=== PATIENT | female | born 1930 | race Caucasian/White ===

== ENCOUNTER 2018-03-24 12:58 | Inpatient (IN) ==
--- NOTE | 2018-03-24 13:09 | Emergency Department Note ---
Disposition Clinical Impression: CHF (congestive heart failure), Hypertensive urgency Disposition: Admitted As Inpatient Condition: Fair General Adult HPI - General Stated complaint: dizziness Time Seen by Provider: 03/24/18 13:00 Source: patient Limitations: no limitations - History of Present Illness Pain Scale: 4 - Related Data Home Medications Medication Instructions Recorded Confirmed Furosemide [Lasix] 20 mg PO DAILY PRN 03/24/18 03/24/18 Losartan Potassium [Cozaar] 100 mg PO DAILY 03/24/18 03/24/18 Metoprolol Succinate [Kapspargo 100 mg PO DAILY 03/24/18 03/24/18 Sprinkle] RX: Latanoprost [Xalatan] 1 drop BOTH EYES HS 03/24/18 03/24/18 RX: Levothyroxine Sodium 50 mcg PO DAILY 03/24/18 03/24/18 Rivaroxaban [Xarelto] 15 mg PO DAILY 03/24/18 03/24/18 Allergies Allergy/AdvReac Type Severity Reaction Status Date / Time amlodipine [From [facility]] Allergy Cough Verified 03/24/18 13:28 diltiazem Allergy Hives Verified 03/24/18 13:28 lisinopril Allergy Cough Verified 03/24/18 13:28 Past Medical History - Past Medical History Medical history: Reports: other Psychiatric history: Reports: no psych history - Social History Smoking Status: Never smoker Smokeless Tobacco Status: No Alcohol use: Reports: none Drug use: Reports: none Physical Exam - General Limitations: no limitations General appearance: alert, in no apparent distress Course Vital Signs Temperature 97.7 F 03/24/18 13:04 Pulse Rate 81 03/24/18 13:04 Respiratory Rate 20 03/24/18 13:04 Blood Pressure 206/183 03/24/18 13:04 O2 Sat by Pulse Oximetry 95 03/24/18 13:04 Temperature 98.0 F 03/24/18 17:08 Pulse Rate 80 03/24/18 17:08 Respiratory Rate 16 03/24/18 17:08 Blood Pressure 192/100 03/24/18 18:37 O2 Sat by Pulse Oximetry 94 03/24/18 17:08 Oxygen Delivery Oxygen Delivery Room Air Medical Decision Making - Lab Data Result diagrams: 03/24/18 13:07 03/24/18 13:07 Lab Results 03/24/18 03/24/18 03/24/18 Range/Units 13:07 13:07 13:07 WBC 6.8 (4.3-11.1) K/mcL RBC 4.81 (3.82-4.97) M/mcL Hgb 15.2 (11.5-15.4) g/dL Hct 46.4 H (35.3-44.9) % MCV 96.5 (83.0-100.0) fL MCH 31.6 (28.0-33.3) pg MCHC 32.8 (31.6-35.5) g/dL RDW 14.4 (11.5-14.5) % Plt Count 173 (140-400) K/mcL MPV 10.2 (9.4-12.4) fL Immature Gran % 0.1 (0-4) % Seg Neutrophils % 57.8 % Lymphocytes % 29.9 % Monocytes % 8.7 % Eosinophils % 3.1 % Basophils % 0.4 % Neutrophils # 3.9 (1.6-8.9) K/mcL Lymphocytes # 2.0 (0.6-4.6) K/mcL Monocytes # 0.6 (0.0-1.3) K/mcL Eosinophils # 0.2 (0.0-0.6) K/mcL Basophils # 0.0 (0.0-0.2) K/mcL Sodium 137 (136-145) mEq/L Potassium 4.1 (3.5-5.1) mEq/L Chloride 105 (98-107) mEq/L Carbon Dioxide 24 (23-29) mEq/L BUN 16 (8-23) mg/dL Creatinine 1.15 (0.60-1.20) mg/dL Est GFR ( Amer) 54 L (> 60) Est GFR (Non-Af Amer) 45 L (> 60) BUN/Creatinine Ratio 14 (6-26) Glucose 111 H (70-105) mg/dL Calculated Osmolality 286 (280-300) Calcium 9.7 (8.6-10.3) mg/dL Magnesium 2.3 (1.6-2.6) mg/dL Total Bilirubin 1.3 H (0.3-1.0) mg/dL AST 23 (13-39) Units/L ALT 17 (7-52) Units/L Alkaline Phosphatase 91 (34-104) Units/L Troponin I < 0.03 (< 0.04) ng/mL B-Natriuretic Peptide 402 H (Less than 100) pg/mL Serum Total Protein 7.4 (6.4-8.9) g/dL Albumin 4.4 (3.5-5.7) g/dL Globulin 3.0 (2.4-3.5) g/dL Albumin/Globulin Ratio 1.5 (1.1-2.2) Urine Color (Yellow) Urine Clarity (Clear) Urine pH (5.0-8.0) pH Units Ur Specific [place] (1.010-1.025) Urine Protein (Neg-Trace) mg/dL Urine Glucose (UA) (Normal) mg/dL Urine Ketones (Negative) mg/dL Urine Blood (Negative) Urine Nitrite (Negative) Urine Bilirubin (Negative) Urine Urobilinogen (Normal) mg/dL Ur Leukocyte Esterase (Negative) Urine Microscopic RBC (0-3) per hpf Urine Microscopic WBC (0-3) per hpf Ur Squamous Epith Cells (None-Few) per lpf Urine Bacteria (None-Few) per hpf Hyaline Casts (None-Few) per lpf 03/24/18 Range/Units 13:27 WBC (4.3-11.1) K/mcL RBC (3.82-4.97) M/mcL Hgb (11.5-15.4) g/dL Hct (35.3-44.9) % MCV (83.0-100.0) fL MCH (28.0-33.3) pg MCHC (31.6-35.5) g/dL RDW (11.5-14.5) % Plt Count (140-400) K/mcL MPV (9.4-12.4) fL Immature Gran % (0-4) % Seg Neutrophils % % Lymphocytes % % Monocytes % % Eosinophils % % Basophils % % Neutrophils # (1.6-8.9) K/mcL Lymphocytes # (0.6-4.6) K/mcL Monocytes # (0.0-1.3) K/mcL Eosinophils # (0.0-0.6) K/mcL Basophils # (0.0-0.2) K/mcL Sodium (136-145) mEq/L Potassium (3.5-5.1) mEq/L Chloride (98-107) mEq/L Carbon Dioxide (23-29) mEq/L BUN (8-23) mg/dL Creatinine (0.60-1.20) mg/dL Est GFR ( Amer) (> 60) Est GFR (Non-Af Amer) (> 60) BUN/Creatinine Ratio (6-26) Glucose (70-105) mg/dL Calculated Osmolality (280-300) Calcium (8.6-10.3) mg/dL Magnesium (1.6-2.6) mg/dL Total Bilirubin (0.3-1.0) mg/dL AST (13-39) Units/L ALT (7-52) Units/L Alkaline Phosphatase (34-104) Units/L Troponin I (< 0.04) ng/mL B-Natriuretic Peptide (Less than 100) pg/mL Serum Total Protein (6.4-8.9) g/dL Albumin (3.5-5.7) g/dL Globulin (2.4-3.5) g/dL Albumin/Globulin Ratio (1.1-2.2) Urine Color Yellow (Yellow) Urine Clarity Clear (Clear) Urine pH 7.0 (5.0-8.0) pH Units Ur Specific [place] < 1.005 L (1.010-1.025) Urine Protein 30 H (Neg-Trace) mg/dL Urine Glucose (UA) Normal (Normal) mg/dL Urine Ketones Negative (Negative) mg/dL Urine Blood Small H (Negative) Urine Nitrite Negative (Negative) Urine Bilirubin Negative (Negative) Urine Urobilinogen Normal (Normal) mg/dL Ur Leukocyte Esterase Trace H (Negative) Urine Microscopic RBC 3-5 H (0-3) per hpf Urine Microscopic WBC 0-3 (0-3) per hpf Ur Squamous Epith Cells Moderate H (None-Few) per lpf Urine Bacteria None Seen (None-Few) per hpf Hyaline Casts None Seen (None-Few) per lpf Attestation Statement - Attestation Attestation: I examined this patient and my medical decision-making was reviewed with the Resident Physician. I agree with the documented findings, disposition and treatment plan as described except to the extent set forth below. [id number] time provided The patient describes ongoing dyspnea over the past several months. Today she "just does not feel like myself." She has a history of poorly controlled blood pressures. She takes normal anticoagulants for atrial fibrillation which is chronic. Family concerned that earlier today her speech was slurred which has resolved. The patient is alert and lucid without focal neurologic findings at the time of arrival
[2018-03-24] MEDS ORDERED: amLODIPine 5 MG TABLET PO STA (13:19)
--- NOTE | 2018-03-24 13:30 | Emergency Department Note ---
Disposition Clinical Impression: Hypertensive urgency CHF (congestive heart failure) Qualifiers: Heart failure type: unspecified Heart failure chronicity: unspecified Qualified Code(s): I50.9 - Heart failure, unspecified Disposition: Admitted As Inpatient Condition: Fair Forms: ED Satisfaction Letter Time of Disposition: 15:13 Weakness HPI - General Chief complaint: ED Weakness Stated complaint: dizziness Time Seen by Provider: 03/24/18 13:00 Source: patient Mode of arrival: ambulatory Limitations: no limitations Nursing Notes Reviewed: Yes Vital Signs Reviewed: Yes - History of Present Illness HPI Narrative: 87-year-old female presents to the emergency department complaining of mild headache, generalized weakness, shortness of breath as well as some worry about slurring speech. Patient states she has not felt well over the last 2 or 3 days. She said that she is having a mild headache she normally has high blood pressure she takes lisinopril, losartan. She has been taken all her medications regular. Does have history of A. fib and also takes Xarelto. According to family yesterday she was started a little bit slurring his speech but this is since normalized. He also stenosis and generalized weakness. They state normally she is not short of breath she has a have any difficulty in breathing normal has no history of smoking. Patient has not had any fevers she has no history of CHF. Patient otherwise having no complaints at this time. Pain Scale: 4 - Related Data Allergies Allergy/AdvReac Type Severity Reaction Status Date / Time amlodipine [From [facility]] Allergy Cough Verified 03/24/18 13:28 diltiazem Allergy Hives Verified 03/24/18 13:28 lisinopril Allergy Cough Verified 03/24/18 13:28 All systems ED: reviewed and negative except as stated. Review of Systems: As Per HPI Constitutional: Reports: weakness. Denies: fever, chills, weight change Eyes: Reports: as per HPI ENT ED: Denies: ear pain, throat pain, dental pain, hearing loss, epistaxis, congestion, dysphagia Cardiovascular: Denies: chest pain, palpitations, dyspnea on exertion, edema, syncope Respiratory: Reports: dyspnea. Denies: cough, wheezes, hemoptysis, stridor Gastrointestinal: Denies: abdominal pain, nausea, vomiting, diarrhea, constipation, hematemesis, melena, hematochezia Genitourinary: Denies: dysuria, frequency, hematuria, discharge Musculoskeletal: Denies: back pain, neck pain, arthralgia, myalgia Integumentary: Denies: rash, abrasion, lesions Neurological: Reports: headache, weakness. Denies: numbness, paresthesias, confusion, abnormal gait, vertigo Psychiatric: Denies: anxiety, depression, suicidal thoughts, homicidal thoughts, auditory hallucinations, visual hallucinations Endocrine: Denies: fatigue Hematological/Lymphatic: Denies: easy bleeding, easy bruising Allergic/Immunologic: Denies: facial swelling, urticaria Past Medical History - Past Medical History Medical history: Reports: other Psychiatric history: Reports: no psych history - Social History Smoking Status: Never smoker Smokeless Tobacco Status: No Alcohol use: Reports: none Drug use: Reports: none Physical Exam - General Limitations: no limitations General appearance: alert, in no apparent distress - Head Head exam: atraumatic, normocephalic, normal inspection - Eye Eye exam: Present: normal appearance, PERRL, EOMI - ENT ENT exam: normal exam, normal oropharynx, mucous membranes moist - Neck Neck exam: Present: normal inspection, full ROM, trachea midline - Chest Chest inspection: Present: normal inspection, symmetric chest wall rise - Respiratory Respiratory exam: Present: normal lung sounds bilaterally, respiratory distress (Mild respiratory distress), accessory muscle use. Absent: wheezes - Cardiovascular Cardiovascular exam: Present: regular rate, normal rhythm, normal heart sounds - Abdominal Exam Abdominal exam: Present: soft, Non-Tender. Absent: tenderness, distention, guarding, rebound, rigidity - Extremities Exam Extremities exam: Present: normal inspection, full ROM. Absent: tenderness, pedal edema - Expanded Lower Extremity Exam Neurovascular/Tendon exam: Present: normal capillary refill. Absent: pulse deficit, motor deficit, sensory deficit, tendon deficit - Back Exam Back exam: Present: normal inspection, full ROM. Absent: tenderness, CVA tenderness (R), CVA tenderness (L) - Neurological Exam Neurological exam: Present: alert, oriented X3 - Skin Skin exam: Present: warm, dry, intact, normal color Course Course Narrative: Will do broad workup including CBC, BMP, magnesium, troponin as well as EKG chest x-ray and head CT. Patient does have elevated blood pressure of 220/180 this most likely I think is causing her symptoms. Due to this we will give 5 mg Lopressor to help with the blood pressure as patient is allergic to Norvasc. As well as Michael inhibitors. Vital Signs Temperature 97.7 F 03/24/18 13:04 Pulse Rate 81 03/24/18 13:04 Respiratory Rate 20 03/24/18 13:04 Blood Pressure 206/183 03/24/18 13:04 O2 Sat by Pulse Oximetry 95 03/24/18 13:04 Temperature 97.7 F 03/24/18 13:04 Pulse Rate 74 03/24/18 14:32 Respiratory Rate 16 03/24/18 14:32 Blood Pressure 202/106 03/24/18 14:32 O2 Sat by Pulse Oximetry 95 03/24/18 14:32 Oxygen Delivery Oxygen Delivery Room Air Weakness - MDM Narrative Medical decision making narrative: Patient presented here she was stable she was alert and oriented. I did not original NIH score and she came here came out is 0. Do the timeframe that her symptoms been going on she did not meet a stroke alert criteria. Patient's blood pressure was very elevated AT 220/109's we started patient on 5,000,000 g a Lopressor. This did mildly lower it and her symptoms did mildly resolved. She did have an elevated BNP of 420. This is a mix of CHF and hypertensive urgency causing patient's symptoms. CT of the head came back with no acute abnormalities. Chest x-ray had no acute abnormalities. Patient does feel comfortable staying in the hospital. I think patient needs to stay to get better control of her blood pressure medications. Family agrees with this plan. Patient is stable at this time. I spoke with the hospitalist Dr. Alexander at 1510. They agreed to accept the patient to their service. Patient is admitted in stable condition Chest X-Ray 03/24/18 13:07 IMPRESSION: 1. Cardiomegaly with mild pulmonary vascular congestion, not appreciably changed. D/ / 03/24/2018 13:55:09 Ovidio Benson MD / Kiah Melendez Interpreting Provider: Ovidio Benson MD Head CT 03/24/18 13:07 IMPRESSION: 1. No acute intracranial abnormality. 2. Cerebral parenchymal volume loss with chronic microvascular white matter ischemic disease. 3. Indeterminate calcifications in the medial aspect of the right occipital lobe, likely benign. If there is clinical concern, an MRI of the brain could be performed for further evaluation. D/ / 03/24/2018 13:53:00 Ovidio Benson MD / ferdinand Interpreting Provider: Ovidio Benson MD - Medical Records Medical records reviewed: Yes I reviewed the patient's medical records. - Lab Data Lab results reviewed: Yes I reviewed the patient's lab results. Result diagrams: 03/24/18 13:07 03/24/18 13:07 Lab Results 03/24/18 03/24/18 03/24/18 Range/Units 13:07 13:07 13:07 WBC 6.8 (4.3-11.1) K/mcL RBC 4.81 (3.82-4.97) M/mcL Hgb 15.2 (11.5-15.4) g/dL Hct 46.4 H (35.3-44.9) % MCV 96.5 (83.0-100.0) fL MCH 31.6 (28.0-33.3) pg MCHC 32.8 (31.6-35.5) g/dL RDW 14.4 (11.5-14.5) % Plt Count 173 (140-400) K/mcL MPV 10.2 (9.4-12.4) fL Immature Gran % 0.1 (0-4) % Seg Neutrophils % 57.8 % Lymphocytes % 29.9 % Monocytes % 8.7 % Eosinophils % 3.1 % Basophils % 0.4 % Neutrophils # 3.9 (1.6-8.9) K/mcL Lymphocytes # 2.0 (0.6-4.6) K/mcL Monocytes # 0.6 (0.0-1.3) K/mcL Eosinophils # 0.2 (0.0-0.6) K/mcL Basophils # 0.0 (0.0-0.2) K/mcL Sodium 137 (136-145) mEq/L Potassium 4.1 (3.5-5.1) mEq/L Chloride 105 (98-107) mEq/L Carbon Dioxide 24 (23-29) mEq/L BUN 16 (8-23) mg/dL Creatinine 1.15 (0.60-1.20) mg/dL Est GFR ( Amer) 54 L (> 60) Est GFR (Non-Af Amer) 45 L (> 60) BUN/Creatinine Ratio 14 (6-26) Glucose 111 H (70-105) mg/dL Calculated Osmolality 286 (280-300) Calcium 9.7 (8.6-10.3) mg/dL Magnesium 2.3 (1.6-2.6) mg/dL Total Bilirubin 1.3 H (0.3-1.0) mg/dL AST 23 (13-39) Units/L ALT 17 (7-52) Units/L Alkaline Phosphatase 91 (34-104) Units/L Troponin I < 0.03 (< 0.04) ng/mL B-Natriuretic Peptide 402 H (Less than 100) pg/mL Serum Total Protein 7.4 (6.4-8.9) g/dL Albumin 4.4 (3.5-5.7) g/dL Globulin 3.0 (2.4-3.5) g/dL Albumin/Globulin Ratio 1.5 (1.1-2.2) Urine Color (Yellow) Urine Clarity (Clear) Urine pH (5.0-8.0) pH Units Ur Specific [place] (1.010-1.025) Urine Protein (Neg-Trace) mg/dL Urine Glucose (UA) (Normal) mg/dL Urine Ketones (Negative) mg/dL Urine Blood (Negative) Urine Nitrite (Negative) Urine Bilirubin (Negative) Urine Urobilinogen (Normal) mg/dL Ur Leukocyte Esterase (Negative) Urine Microscopic RBC (0-3) per hpf Urine Microscopic WBC (0-3) per hpf Ur Squamous Epith Cells (None-Few) per lpf Urine Bacteria (None-Few) per hpf Hyaline Casts (None-Few) per lpf 03/24/18 Range/Units 13:27 WBC (4.3-11.1) K/mcL RBC (3.82-4.97) M/mcL Hgb (11.5-15.4) g/dL Hct (35.3-44.9) % MCV (83.0-100.0) fL MCH (28.0-33.3) pg MCHC (31.6-35.5) g/dL RDW (11.5-14.5) % Plt Count (140-400) K/mcL MPV (9.4-12.4) fL Immature Gran % (0-4) % Seg Neutrophils % % Lymphocytes % % Monocytes % % Eosinophils % % Basophils % % Neutrophils # (1.6-8.9) K/mcL Lymphocytes # (0.6-4.6) K/mcL Monocytes # (0.0-1.3) K/mcL Eosinophils # (0.0-0.6) K/mcL Basophils # (0.0-0.2) K/mcL Sodium (136-145) mEq/L Potassium (3.5-5.1) mEq/L Chloride (98-107) mEq/L Carbon Dioxide (23-29) mEq/L BUN (8-23) mg/dL Creatinine (0.60-1.20) mg/dL Est GFR ( Amer) (> 60) Est GFR (Non-Af Amer) (> 60) BUN/Creatinine Ratio (6-26) Glucose (70-105) mg/dL Calculated Osmolality (280-300) Calcium (8.6-10.3) mg/dL Magnesium (1.6-2.6) mg/dL Total Bilirubin (0.3-1.0) mg/dL AST (13-39) Units/L ALT (7-52) Units/L Alkaline Phosphatase (34-104) Units/L Troponin I (< 0.04) ng/mL B-Natriuretic Peptide (Less than 100) pg/mL Serum Total Protein (6.4-8.9) g/dL Albumin (3.5-5.7) g/dL Globulin (2.4-3.5) g/dL Albumin/Globulin Ratio (1.1-2.2) Urine Color Yellow (Yellow) Urine Clarity Clear (Clear) Urine pH 7.0 (5.0-8.0) pH Units Ur Specific [place] < 1.005 L (1.010-1.025) Urine Protein 30 H (Neg-Trace) mg/dL Urine Glucose (UA) Normal (Normal) mg/dL Urine Ketones Negative (Negative) mg/dL Urine Blood Small H (Negative) Urine Nitrite Negative (Negative) Urine Bilirubin Negative (Negative) Urine Urobilinogen Normal (Normal) mg/dL Ur Leukocyte Esterase Trace H (Negative) Urine Microscopic RBC 3-5 H (0-3) per hpf Urine Microscopic WBC 0-3 (0-3) per hpf Ur Squamous Epith Cells Moderate H (None-Few) per lpf Urine Bacteria None Seen (None-Few) per hpf Hyaline Casts None Seen (None-Few) per lpf - Radiology Data Radiology results reviewed: Yes I reviewed the patient's radiology results. - EKG Data EKG attestation: Yes I reviewed and interpreted this EKG. EKG results narrative: EKG done at 1313 review myself and attending shows atrial fibrillation at a rate of 99, QRS 89, QTC 42. No acute ST changes no acute T-wave changes no other signs of ischemia. No hypertrophy, heart strain, heart block. No WPW/Brugada/HOCM. EKG is unchanged also with atrial fibrillation based on old one done 01/22/13.
[2018-03-24] MEDS ORDERED: *HR* Metoprolol 5 MG/5 ML VIAL IVP ONE ×2 (13:32→15:36)
[2018-03-24 13:38] LABS: Basophils % 0.4 %; Eosinophils # 0.2 K/mcL (0.0-0.6); Eosinophils % 3.1 %; Hematocrit 46.4 % (35.3-44.9); Hemoglobin 15.2 g/dL (11.5-15.4); Immature Granulocytes % 0.1 % (0-4); Lymphocytes % 29.9 %; Mean Corpuscular HGB Conc 32.8 g/dL (31.6-35.5); Mean Corpuscular Hemoglobin 31.6 pg (28.0-33.3); Mean Corpuscular Volume 96.5 fL (83.0-100.0); Mean Platelet Volume 10.2 fL (9.4-12.4); Monocytes # 0.6 K/mcL (0.0-1.3); Monocytes % 8.7 %; Neutrophils # 3.9 K/mcL (1.6-8.9); Platelet Count 173 K/mcL (140-400); Red Blood Count 4.81 M/mcL (3.82-4.97); Red Cell Distribution Width 14.4 % (11.5-14.5); Segmented Neutrophils % 57.8 %
[2018-03-24 13:42] LABS: Bilirubin,Urine Negative (Negative); Blood,Urine Small (Negative); Clarity,Urine Clear (Clear); Color,Urine Yellow (Yellow); Glucose,Urine (UA) Normal (Normal); Ketones,Urine Negative (Negative); Leukocyte Esterase,Urine Trace (Negative); Nitrite,Urine Negative (Negative); Protein,Urine 30 mg/dL (Neg-Trace); Specific Gravity,Urine < 1.005 (1.010-1.025); Urobilinogen,Urine Normal (Normal)
[2018-03-24 13:46] LABS: Bacteria,Urine None Seen per hpf (None-Few); Hyaline Casts,Urine None Seen per lpf (None-Few); Squamous Epithelial Cell,Urine Moderate per lpf (None-Few); WBC,Urine 0-3 per hpf (0-3)
[2018-03-24 13:59] LABS: Troponin I < 0.03 ng/mL (< 0.04)
[2018-03-24 14:00] LABS: Alanine Aminotransferase 17 Units/L (7-52); Albumin 4.4 g/dL (3.5-5.7); Albumin/Globulin Ratio 1.5 (1.1-2.2); Alkaline Phosphatase 91 Units/L (34-104); Aspartate Amino Transferase 23 Units/L (13-39); BUN/Creatinine Ratio 14 (6-26); Bilirubin,Total 1.3 mg/dL (0.3-1.0); Blood Urea Nitrogen 16 mg/dL (8-23); Calcium 9.7 mg/dL (8.6-10.3); Carbon Dioxide 24 mEq/L (23-29); Chloride 105 mEq/L (98-107); Glucose 111 mg/dL (70-105); Magnesium 2.3 mg/dL (1.6-2.6); Osmolality,Calculated 286 (280-300); Potassium 4.1 mEq/L (3.5-5.1); Sodium 137 mEq/L (136-145); Total Protein 7.4 g/dL (6.4-8.9); eGFR For Non-African Americans 45 (> 60)
[2018-03-24] MEDS ORDERED: *HR* Labetalol 20 MG/4 ML SYRINGE IVP ONE ×2 (15:36→15:39)
[2018-03-24] MEDS ORDERED: Naloxone 0.4 MG/ML INJ IVP PRN (16:02)
--- NOTE | 2018-03-24 16:16 | Event Note ---
Date of Encounter: 03/24/18 Time of Encounter: 16:00 I examined this patient and my medical decision-making was reviewed with the Resident Physician Dr Richey 03/24/18. I agree with the documented findings, disposition and treatment plan as described except to the extent set forth below. to serve as attestation while awaiting completion of h&P case d/w dr Richey in detail Pt seen and examined in ED awake, son at bedside. she denies any further slurred speech (noted one day ago) and no weakness, numbness, tingling, paralysis. She has had lau today and has chronic intermittent vision changes of floaters that have occurred in recent days but not different than baseline. No assocaited chest pain, pressure, ne ck/jaw/back/abd pain, sob, n/v with BP elevations. No palpitations with chronic afib, no presyncope. Best BPs at home are 140s sbp but she notes she does elevate into 160/90s at times. gen- alert, awake,appears stated age eyes- pupils equal round cv- reg rate and irre/irreg rhythm, normal s1,s2, no murmurs appreciated, no jvd, no le edema lungs- ctabl, no wheezing, rhonchi or crackles, normal resp effort abd- soft, non tender, non distended, + bs neuro- AAOx3, CN grossly intact, strength 5/5, sensation intact to lt touch throughout, no drift, clear speech HTN emergency given neuro changes, neuro changes now resolved- bp elevtion in ED at times >220/110s- s/p 5 mg labetalol without effect, ED to give 10 mg Labetalol and we will resume home meds one at a time and monitor BP -goal is 25% reduction in next hour and to 160/100-110 overnight tonight-give home BB now, losartan 100 mg home dose later if needed, prn labetalol and low threshold for initiation of labetalol drip tonight if can't control with as ordered meds -check echo, trend trops, tele -no acute ischemic changes noted by ed, rate controlled afib and no chest pain -while bnp is elevated she examines euvolemic, CXR mild pulm vasc congestion, O2 sats stable on room air further diagnoses and treatment as documented by resident
--- NOTE | 2018-03-24 16:23 | Internal Med History&Physical ---
<Beverly Richey - Last Filed: 03/24/18 16:14> Date of Encounter: 03/24/18 Time of Encounter: 16:00 Internal Medicine - H&P: HPI Chief complaint: Weakness Admitted From: Emergency Dept Plans for Post Hospital Care: Home History of present illness: Ms. Roa is a 87 year old female with past medical history of atrial fibrillation, hypertension, glaucoma presented to [facility] complaining of weakness. She reported that her symptoms started yesterday where she was feeling "just not right" and today when she woke up she was feeling the same way so she came to the hospital. She is accompanied by her son he reported that she started have slurred speech today which has now resolved. Additionally she had headache, change in vision with blurry lines which she stated she sometimes gets. She has shortness of breath on exertion but this is chronic to her and is not worsened. She denied chest pain, shortness of breath, cough, syncope, palpitations, fever, chills, abdominal pain, nausea, dysuria. She reported that she has been compliant with all of her medications including losartan, metoprolol, and xarelto. She denies ever being hospitalized for high blood pressure. She has Lasix she takes only as needed for lower leg swelling. She reported that she is a DNR CCA DNI. In the ED, she was noted to have a blood pressure of 220/109's with a heart rate of 81. She was given a dose of 5 mg Lopressor. Upon my examination of the patient she had a blood pressure of 217/104 and she was then given a dose of labetalol 10 mg. Troponin <0.03, BNP 42. Chest x-ray demonstrating card iomegaly with mild pulmonary vascular congestion. Head CT negative for acute intracranial abnormality. Indeterminate calcifications in the medial aspect of right lobe, likely benign. Past Med Surg Social Fam HX - Past Medical History Attestation: Yes The following information was validated with the patient. Source: patient Medical history: atrial fibrillation, hypertension, thyroid disease, other Psychiatric history: no psych history - Past Surgical History Surgical History: non-contributory - Social History Smoking Status: Never smoker Smokeless Tobacco Status: No Alcohol use: none Drug use: none - Family History Mother Hx Family Cardiac Disorders: Yes (Myocardial infarction) Internal Medicine - H&P: Meds Furosemide [Lasix] 20 mg PO DAILY PRN 03/24/18 [History] Latanoprost [Xalatan] 1 drop BOTH EYES HS 03/24/18 [History] Levothyroxine Sodium 50 mcg PO DAILY 03/24/18 [History] Losartan Potassium [Cozaar] 100 mg PO DAILY 03/24/18 [History] Metoprolol Succinate [Kapspargo Sprinkle] 100 mg PO DAILY 03/24/18 [History] Rivaroxaban [Xarelto] 15 mg PO DAILY 03/24/18 [History] Allergy/AdvReac Type Severity Reaction Status Date / Time amlodipine [From [facility]] Allergy Cough Verified 03/24/18 13:28 diltiazem Allergy Hives Verified 03/24/18 13:28 lisinopril Allergy Cough Verified 03/24/18 13:28 All Systems PM: A 10-system review of systems was performed and is negative for pertinent findings except as documented above in the HPI. - Constitutional Constitutional: fatigue, malaise, weakness, no fever(s), no falls - EENT Eyes: change in vision (Wiggly lines), no loss of vision, no pain Nose, mouth and throat: dry mouth - Cardiovascular Cardiovascular ROS IM: dyspnea on exertion, no chest pain, no diaphoresis, no edema, no palpitations, no syncope - Respiratory Respiratory: no cough, no dyspnea, no wheezing, no excessive phlegm production - Gastrointestinal Gastrointestinal: no abdominal pain, no diarrhea, no nausea, no vomiting - Genitourinary Genitourinary: no dysuria - Integumentary Integumentary IM: no erythema, no new lesions - Neurological Neurological ROS: abnormal speech (Slurred speech), headache(s), weakness, no confusion, no dizziness, no focal weakness, no frequent falls, no lack of coordination, no loss of vision - Psychiatric Psychiatric: no confusion - Constitutional Vitals: Temp Pulse Resp BP Pulse Ox 97.7 F 81 18 217/104 97 03/24/18 13:04 03/24/18 15:38 03/24/18 15:38 03/24/18 15:38 03/24/18 15:38 Exam: Gen.: Vitals noted. No acute distress. AAOx3 HEENT: oropharynx clear, Normocephalic, atraumatic Neck: Supple. No adenopathy. Cardiac: irregular, no murmur, +S1/S2 Pulmonary: CTA bilaterally, no wheezes, rales or rhonchi, equal chest expansion Abdomen: soft, nontender, Bowel sounds noted, no guarding MSK: ROM intact, no joint swelling noted Extremities: no BLE edema, nontender calf, no cyanosis or clubbing Neuro: A&Ox3, moves all extremities, no focal deficits, intact strength and sensation bilaterally Psych: Appropriate mood and behavior Internal Med - H&P Results - Labs CBC & Chem 7: 03/24/18 13:07 03/24/18 13:07 Labs: Short CBC 03/24/18 Range/Units 13:07 WBC 6.8 (4.3-11.1) K/mcL Hgb 15.2 (11.5-15.4) g/dL Hct 46.4 H (35.3-44.9) % Plt Count 173 (140-400) K/mcL Neutrophils # 3.9 (1.6-8.9) K/mcL BMP 03/24/18 13:07 Sodium 137 Potassium 4.1 Chloride 105 Carbon Dioxide 24 BUN 16 Creatinine 1.15 Glucose 111 H Calcium 9.7 Cardiac Enzymes 03/24/18 Range/Units 13:07 Troponin I < 0.03 (< 0.04) ng/mL Liver Function 03/24/18 Range/Units 13:07 Total Bilirubin 1.3 H (0.3-1.0) mg/dL AST 23 (13-39) Units/L ALT 17 (7-52) Units/L Alkaline Phosphatase 91 (34-104) Units/L Albumin 4.4 (3.5-5.7) g/dL Urine 03/24/18 Range/Units 13:27 Urine Color Yellow (Yellow) Urine Clarity Clear (Clear) Urine pH 7.0 (5.0-8.0) pH Units Ur Specific [place] < 1.005 L (1.010-1.025) Urine Protein 30 H (Neg-Trace) mg/dL Urine Glucose (UA) Normal (Normal) mg/dL - Impressions ITS Impressions Chest X-Ray 03/24/18 13:07 IMPRESSION: 1. Cardiomegaly with mild pulmonary vascular congestion, not appreciably changed. D/ / 03/24/2018 13:55:09 Ovidio Benson MD / Kiah Melendez Interpreting Provider: Ovidio Benson MD Head CT 03/24/18 13:07 IMPRESSION: 1. No acute intracranial abnormality. 2. Cerebral parenchymal volume loss with chronic microvascular white matter ischemic disease. 3. Indeterminate calcifications in the medial aspect of the right occipital lobe, likely benign. If there is clinical concern, an MRI of the brain could be performed for further evaluation. D/ / 03/24/2018 13:53:00 Ovidio Benson MD / ferdinand Interpreting Provider: Ovidio Benson MD - Assessment and plan (1) Slurred speech Current Visit: Yes Status: Acute Assessment and plan: Resolved. Patient initially had slurred speech today that was appreciated by family. Her son is at bedside who reports this. This is likely secondary to hypertensive emergency. Stroke was ruled out by head CT. Patient denies confusion or difficulty talking. Son at bedside stated that patient is back to her baseline normal. -Continue and NIHSS (2) Atrial fibrillation Current Visit: Yes Status: Acute Assessment and plan: History of known atrial fibrillation on anticoagulation with Xarelto and rate controlled with metoprolol heart rate controlled -continue home metoprolol and Xarelto Qualifiers: Atrial fibrillation type: chronic Qualified Code(s): I48.2 - Chronic atrial fibrillation (3) Hypertension Current Visit: Yes Status: Acute Assessment and plan: History of hypertension taking metoprolol and losartan. She reports taking Lasix as needed for lower extremity swelling. She stated that normal blood pressure is 140 systolic for her. -Plan as above Qualifiers: Hypertension type: essential hypertension Qualified Code(s): I10 - Essential (primary) hypertension (4) Hypothyroidism Current Visit: Yes Status: Acute Assessment and plan: History of known hypothyroidism taking levothyroxine -continue home levothyroxine Qualifiers: Hypothyroidism type: unspecified Qualified Code(s): E03.9 - Hypothyroidism, unspecified (5) DVT prophylaxis Current Visit: Yes Status: Acute Assessment and plan: On Xarelto (6) Hypertensive emergency Current Visit: Yes Status: Acute Assessment and plan: Patient with PMH atrial fibrillation and hypertension presented with hypertensive emergency with slurred speech, headache, change in vision, wea kness, feeling of un-wellness and "just not right". Blood pressure in ED was 220/109's with a heart rate of 81. She was given a dose of 5 mg Lopressor. Prior to going to floor her blood pressure was noted to be 217/104 so 10 mg labetalol was given. The patient reported that she has been compliant with her blood pressure medications including metoprolol, losartan, Xarelto. She takes Lasix as needed for lower extremity swelling. -Etiology includes possibly missing doses of her blood pressure medication, CHF, stroke ruled out -Troponin <0.03 -BNP 42 -Chest x-ray demonstrating cardiomegaly with mild pulmonary vascular congestion. -Head CT negative for acute intracranial abnormality. Indeterminate calcifications in the medial aspect of right lobe, likely benign -EKG: atrial fibrillation, HR 99, no acute ST or T wave changes indicating ischemia. Unchanged from previous. Plan: -restart the patient's metoprolol 100 qd -labetalol 5 mg PRN -Blood pressure goal is 160-180 systolic by the a.m. Goal to decreased blood pressure by 25% per guidelines such prevent the proper pressure from decreasing to quickly and causing an ischemic stroke. -will hold on starting the patient's losartan so not to decreased blood pressure too quickly -continue close monitoring of blood pressure -continue NIHSS -trend troponin's -echocardiogram ordered to rule out new CHF -EKG in a.m. - Time Spent With Patient Total time spent is greater than 50% in coordination of care (as documented) at patient's floor/unit and/or counseling patient: <Bell Martinez - Last Filed: 03/24/18 17:56> Date of Encounter: 03/24/18 Internal Medicine - H&P: HPI History of present illness: Ms. Roa is a 87 year old female All Systems PM: A 10-system review of systems was performed and is negative for pertinent findings except as documented above in the HPI. - Constitutional Vitals: Temp Pulse Resp BP Pulse Ox 98.0 F 80 16 228/128 94 03/24/18 17:08 03/24/18 17:08 03/24/18 17:08 03/24/18 17:13 03/24/18 17:08 Internal Med - H&P Results - Labs CBC & Chem 7: 03/24/18 13:07 03/24/18 13:07 Labs: Short CBC 03/24/18 Range/Units 13:07 WBC 6.8 (4.3-11.1) K/mcL Hgb 15.2 (11.5-15.4) g/dL Hct 46.4 H (35.3-44.9) % Plt Count 173 (140-400) K/mcL Neutrophils # 3.9 (1.6-8.9) K/mcL BMP 03/24/18 13:07 Sodium 137 Potassium 4.1 Chloride 105 Carbon Dioxide 24 BUN 16 Creatinine 1.15 Glucose 111 H Calcium 9.7 Cardiac Enzymes 03/24/18 Range/Units 13:07 Troponin I < 0.03 (< 0.04) ng/mL Liver Function 03/24/18 Range/Units 13:07 Total Bilirubin 1.3 H (0.3-1.0) mg/dL AST 23 (13-39) Units/L ALT 17 (7-52) Units/L Alkaline Phosphatase 91 (34-104) Units/L Albumin 4.4 (3.5-5.7) g/dL Urine 03/24/18 Range/Units 13:27 Urine Color Yellow (Yellow) Urine Clarity Clear (Clear) Urine pH 7.0 (5.0-8.0) pH Units Ur Specific [place] < 1.005 L (1.010-1.025) Urine Protein 30 H (Neg-Trace) mg/dL Urine Glucose (UA) Normal (Normal) mg/dL - Impressions ITS Impressions Chest X-Ray 03/24/18 13:07 IMPRESSION: 1. Cardiomegaly with mild pulmonary vascular congestion, not appreciably changed. D/ / 03/24/2018 13:55:09 Ovidio Benson MD / Kiah Melendez Interpreting Provider: Ovidio Benson MD Head CT 03/24/18 13:07 IMPRESSION: 1. No acute intracranial abnormality. 2. Cerebral parenchymal volume loss with chronic microvascular white matter ischemic disease. 3. Indeterminate calcifications in the medial aspect of the right occipital lobe, likely benign. If there is clinical concern, an MRI of the brain could be performed for further evaluation. D/ / 03/24/2018 13:53:00 Ovidio Benson MD / ferdinand Interpreting Provider: Ovidio Benson MD - Assessment and plan (1) Hypertension Current Visit: Yes Status: Acute Qualifiers: Hypertension type: essential hypertension Qualified Code(s): I10 - Essential (primary) hypertension (2) Atrial fibrillation Current Visit: Yes Status: Acute Qualifiers: Atrial fibrillation type: chronic Qualified Code(s): I48.2 - Chronic atrial fibrillation (3) Hypothyroidism Current Visit: Yes Status: Acute Qualifiers: Hypothyroidism type: unspecified Qualified Code(s): E03.9 - Hypothyroidism, unspecified (4) DVT prophylaxis Current Visit: Yes Status: Acute (5) Slurred speech Current Visit: Yes Status: Acute (6) Hypertensive emergency Current Visit: Yes Status: Acute - Time Spent With Patient Total time spent is greater than 50% in coordination of care (as documented) at patient's floor/unit and/or counseling patient: - Attending Attestation I examined this patient and my medical decision-making was reviewed with the Resident Physician Dr Richey 03/24/18. I agree with the documented findings, disposition and treatment plan as described except to the extent set forth be low. case d/w dr Richey in detail Pt seen and examined in ED admitted for htn emergency with resolved neurologic symptoms but persistently elevated bps awake, son at bedside. she denies any further slurred speech (noted one day ago) and no weakness, numbness, tingling, paralysis. She has had lau today and has chronic intermittent vision changes of floaters that have occurred in recent days but not different than baseline. No assocaited chest pain, pressure, neck/jaw/back/abd pain, sob, n/v with BP elevations. No palpitations with chronic afib, no presyncope. Best BPs at home are 140s sbp but she notes she does elevate into 160/90s at times. gen- alert, awake,appears stated age eyes- pupils equal round cv- reg rate and irre/irreg rhythm, normal s1,s2, no murmurs appreciated, no jvd, no le edema lungs- ctabl, no wheezing, rhonchi or crackles, normal resp effort abd- soft, non tender, non distended, + bs neuro- AAOx3, CN grossly intact, strength 5/5, sensation intact to lt touch throughout, no drift, clear speech HTN emergency given neuro changes, neuro changes now resolved- bp elevtion in ED at times >220/110s- s/p 5 mg labetalol without effect, ED to give 10 mg Labetalol and we will resume home meds one at a time and monitor BP -goal is 25% reduction in next hour and to 160/100-110 overnight tonight-give home BB now, losartan 100 mg home dose later if needed, prn labetalol and low threshold for initiation of labetalol drip tonight if can't control with as ordered meds -check echo, trend trops, tele -no acute ischemic changes noted by ed, rate controlled afib and no chest pain -while bnp is elevated she examines euvolemic, CXR mild pulm vasc congestion, O2 sats stable on room air Slurred speech,onset yesterday, since resolved, no focal neuro deficits and NIH scale 0- likely related to HTN,vs tia will monitor neuro checks, she had no s lurred speech on presentation and would have been outside the time frame for tpa and not a candidate as well due to bp elevation, ct head without acute bleed/acute IC abnormalities, denies drug/etoh use further diagnoses and treatment as documented by resident
[2018-03-24] MEDS: Metoprolol XL (24 HR) Succ 50 MG TAB.ER.24H PO SCH (17:32)
[2018-03-24] MEDS: *HR* Labetalol 20 MG/4 ML SYRINGE IVP PRN (17:33)
[2018-03-24] MEDS ORDERED: Acetaminophen 325 MG TABLET PO PRN (18:39)
[2018-03-24] MEDS ORDERED: Ondansetron 4 MG/2 ML VIAL IVP PRN (20:11)
[2018-03-24] MEDS: Latanoprost 2.5 ML BOTTLE BOTH EYES SCH (20:30)
[2018-03-25] MEDS: Metoprolol XL (24 HR) Succ 50 MG TAB.ER.24H PO SCH (07:48)
[2018-03-25] MEDS ORDERED: *HR* Rivaroxaban 15 MG TABLET PO SCH ×2 (09:00→18:00)
--- NOTE | 2018-03-25 14:08 | Internal Med Progress Note ---
<Bell Martinez - Last Filed: 03/25/18 14:15> Hospitalist Progress Note - Encounter Date of Encounter: 03/25/18 - Exam Vitals: Temp Pulse Resp BP Pulse Ox 98.1 F 80 18 185/99 90 03/25/18 11:13 03/25/18 13:49 03/25/18 11:13 03/25/18 13:49 03/25/18 13:26 - Assessment and Plan (1) Hypertension Current Visit: Yes Status: Acute (2) Atrial fibrillation Current Visit: Yes Status: Acute (3) Hypothyroidism Current Visit: Yes Status: Acute (4) DVT prophylaxis Current Visit: Yes Status: Acute (5) Slurred speech Current Visit: Yes Status: Acute (6) Hypertensive emergency Current Visit: Yes Status: Acute - Time Spent with Patient Total time spent is greater than 50% in coordination of care (as documented) at patient's floor/unit and/or counseling patient: Internal Medicine: Result - Labs CBC & Chem 7: 03/24/18 13:07 03/24/18 13:07 Labs: Cardiac Enzymes 03/24/18 03/24/18 Range/Units 19:04 21:53 Troponin I < 0.03 < 0.03 (< 0.04) ng/mL - Impressions Impressions Echocardiogram 03/25/18 07:00 Impressions: LVEF 60%. Indeterminate diastolic function. RV is dilated with low normal function. Severe bi-atrial enlargement. Mild mitral regurgitation. Mild aortic regurgitation. Moderate-severe tricuspid regurgitation. Mild pulmonic regurgitation. Estimated RVSP is 78 mmHg. Severe pulmonary hypertension. Left Ventricular Wall Motion: Rest Echo Findings All wall segments showed normal motion. Findings: Study Quality * Technically adequate exam. ECG Findings * Normal sinus rhythm. Left Ventricle * LVEF 60%. * Normal LV chamber size, wall thickness and function. * Indeterminate diastolic function. Right Ventricle * RV is dilated with low normal function. Left Atrium * Severely dilated left atrium. Right Atrium * Severely dilated right atrium. Mitral Valve * No mitral stenosis. * Mildly thickened mitral valve leaflets. * Mild mitral regurgitation. Aortic Valve * Trileaflet aortic valve. * Mildly thickened aortic valve leaflets. * No aortic stenosis. * Mild aortic regurgitation. Tricuspid Valve * Tricuspid valve not well visualized. * Moderate-severe tricuspid regurgitation. * Estimated RA pressure is 20 mmHg. * Estimated RVSP is 78 mmHg. * Severe pulmonary hypertension. Pulmonic Valve * Pulmonic valve is not well visualized. * No pulmonic stenosis. * Mild pulmonic regurgitation. Pulmonary Artery * Pulmonary artery not well visualized. Aorta * Normally sized aortic root. Pericardium * There is no pericardial effusion present. Interatrial Septum * Interatrial septum not well evaluated. IVC * The IVC is dilated. * < 50% respiratory change. Consult Discharge Plan - Plan Referrals: Luzma Escalante MD [Primary Care Provider] - - Attending Attestation I examined this patient and my medical decision-making was reviewed with the Resident Physician Dr Richey 03/24/18. I agree with the documented findings, disposition and treatment plan as described except to the extent set forth below. admitted for htn emergency with resolved neurologic symptoms but persistently elevated bps Family now reporting hypoxia at home that pt did not report on admission and we have seen evidence here awake, no lau, vision changes, no weakness/numbness/tingling/speech changes. denies cp, palpitations, sob orthopnea. gen- alert, awake,appears stated age cv- reg rate and irre/irreg rhythm, normal s1,s2, no murmurs appreciated, no jvd, no le edema lungs- ctabl, no wheezing, rhonchi or crackles, normal resp effort on o2 nc abd- soft, non tender, non distended, + bs neuro- AAOx3, CN grossly intact, strength 5/5, clear speech HTN emergency given neuro changes, neuro changes now resolved- remains elevated above goal this afternoon with home BB and losartan, add HCTZ, prn labetalol - echo showed normal RV dysfunction, bilateral atrial enlargement, severe pulm htn, trops neg, and ekg this morning with afib with slow VR--team contacted cardiology as follows with dr Boyd and rec is for pulm consult, no immediate concerns with echo findings, ekg finding and do not need to see pt -cont close bp monitoring Slurred speech,onset yesterday, since resolved, no focal neuro deficits and NIH scale 0- likely related to HTN,vs tia w -cont to treat HTN Family reporting episodes of hypoxia Pt checked ambualting on ra and o2 sat sropped into 80s -given echo finding severe pulm htn, check dimer though she is on xarelto so embolic cause would be unlikely -pulm consulted prn o2 nc -takes lasix 20 mg prn at home, appears euvolemic, but bnp elevated on admit--given she had no hypoxia and wasn't reporting home symptoms, clear lung exam no lasix was given on admit -monitor i/os on hctz and monitor for lasix need Persistent rate controlled afib on xarelto - tele, monitor lytes, cards aware of ekg today, cont to monitor, fu with Dr Boyd outpt further diagnoses and treatment as documented by resident <Beverly Richey - Last Filed: 03/25/18 17:46> Hospitalist Progress Note - Encounter Date of Encounter: 03/25/18 Time of Encounter: 14:07 - Subjective Interval History: Ms. Roa is a 87 year old female with past medical history of atrial fibrillation, hypertension, glaucoma presented to [facility] complaining of weakness. She reported that her symptoms started the day before presentations the ED. She was feeling "just not right", noted to have have slurred speech that resolved prior to her coming to the ED. Additionally she had headache, change in vision with blurry lines which she stated she sometimes gets, along with chronic shortness of breath on exertion. She was noted to be in hypertensive emergency with blood pressure of 220/109's with a heart rate of 81. Blood pressure was cautiously lowered overnight to 165/95. Troponin <0.03, BNP 42. Chest x-ray demonstrating cardiomegaly with mild pulmonary vascular congestion. Head CT negative for acute intracranial abnormality. Indeterminate calcifications in the medial aspect of right lobe, likely benign. EKG: atrial fibrillation, HR 99, no acute ST or T wave changes indicating ischemia. Uncha nged from previous. Today on examination she is alert and oriented times 3 and no acute distress. She is resting comfortably in bed. She denies chest pain am a headache, dizziness, confusion, palpitations. Today when family arrived they reported that the patient had been hypoxic at home. During 6 minute walk test she became hypoxic at 86% saturation. Patient reported now that she does feel that her shortness of breath on exertion that has been chronic to her has been getting worse over time. - Exam Vitals: Temp Pulse Resp BP Pulse Ox 98.1 F 80 18 185/99 90 03/25/18 11:13 03/25/18 13:49 03/25/18 11:13 03/25/18 13:49 03/25/18 13:26 Exam: Gen.: Vitals noted. No acute distress. AAOx3 HEENT: oropharynx clear, Normocephalic, atraumatic Neck: Supple. No adenopathy. Cardiac: irregular, no murmur, +S1/S2 Pulmonary: CTA bilaterally, no wheezes, rales or rhonchi, equal chest expansion Abdomen: soft, nontender, Bowel sounds noted, no guarding MSK: ROM intact, no joint swelling noted Extremities: no BLE edema, nontender calf, no cyanosis or clubbing Neuro: A&Ox3, moves all extremities, no focal deficits, intact strength and sensation bilaterally Psych: Appropriate mood and behavior - Assessment and Plan (1) Hypoxia Current Visit: Yes Status: Acute Assessment and Plan: Patient noted to have hypoxia when exerting herself. 86% oxygen saturation on 6 minute walk test. Etiology includes severe pulmonary hypertension demonstrated by echocardiogram. Unlikely to be pulmonary embolism issues anticoagulated on Xarelto. Chest x-ray demonstrated public vascular congestion. Afebrile, WBC WNL, 90% on room air lungs were clear to auscultation no obvious signs of infection. Urinalysis is positive for leukocyte esterase however the patient is asymptomatic. D-dimer 630 Plan: -continue supplemental oxygen is needed -CTA ordered (2) Pulmonary hypertension Current Visit: Yes Status: Acute Assessment and Plan: New right severe pulmonary hypertension TTE: LVEF 60%, severe biatrial enlargement, mild mitral regurgitation, mild aortic regurgitation, moderate to severe tricuspid regurgitation, mild pulmonic regurgitation, severe pulmonary hypertension with estimated RVSP 78mmHg. -This is most likely concerning for type II pulmonary hypertensions in setting of chronic atrial fibrillation on anticoagulation. No past medical history of lung disease or smoking. -Troponin negative x3 -03/25/2018 EKG: atrial fibrillation, HR 66, no ST or T wave changes indicating ischemia. Plan: -continue treatment for patients atrial fibrillation and hypertension with improved blood pressure control. -Cardiology was consulted and believed that pulmonology should instead be consulted as a believed this to be more a they pulmonary etiology. They stated that if pulmonology believed that cardiology should be consulted then to consult. -Pulmonology was consulted and agreed to see the patient in the morning. Appreciate recommendations. (3) Hypertensive emergency Current Visit: Yes Status: Acute Assessment and Plan: Patient with PMH atrial fibrillation and hypertension presented with [facility] emergency with slurred speech, headache, change in vision, weakness, feeling of un-wellness and "just not right". Blood pressure in ED was 220/109's with a heart rate of 81. She was given a dose of 5 mg Lopressor. Prior to going to floor her blood pressure was noted to be 217/104 so 10 mg labetalol was given. The patient reported that she has been compliant with her blood pressure medications including metoprolol, losartan, Xarelto. She takes Lasix as needed for lower extremity swelling. -Etiology includes possibly missing doses of her blood pressure medication, CHF, stroke ruled out -Troponin negative x3 -BNP 402 -Chest x-ray demonstrating cardiomegaly with mild pulmonary vascular congestion. -Head CT negative for acute intracranial abnormality. Indeterminate calcifications in the medial aspect of right lobe, likely benign -EKG: atrial fibrillation, HR 99, no acute ST or T wave changes indicating ischemia. Unchanged from previous. -03/25/2018 EKG: atrial fibrillation, HR 66, no ST or T wave changes indicating ischemia. Plan: -BP is improved however still elevated at 185/99. Will start hydrochlothiazide 25 mg daily -continue the patient's metoprolol 100 qd and losartan 100mg qd. -labetalol 5 mg PRN -Blood pressure goal is 140-160 systolic -continue close monitoring of blood pressure (4) Slurred speech Current Visit: Yes Status: Acute Assessment and Plan: Resolved. Patient initially had slurred speech today that was appreciated by family. Her son is at bedside who reports this. This is likely secondary to hypertensive emergency. Stroke was ruled out by head CT. Patient denies confusion or difficulty talking. Son at bedside stated that patient is back to her baseline normal. -Continue to monitor -discontinued NIHSS (5) Atrial fibrillation Current Visit: Yes Status: Acute Assessment and Plan: History of known atrial fibrillation on anticoagulation with Xarelto and rate controlled with metoprolol heart rate controlled -continue home metoprolol and Xarelto -check TSH in a.m. (6) Hypertension Current Visit: Yes Status: Acute Assessment and Plan: History of hypertension taking metoprolol and losartan. She reports taking Lasix as needed for lower extremity swelling. She stated that normal blood pressure is 140 systolic for her. -Plan as above (7) Hypothyroidism Current Visit: Yes Status: Acute Assessment and Plan: History of known hypothyroidism taking levothyroxine -continue home levothyroxine (8) DVT prophylaxis Current Visit: Yes Status: Acute Assessment and Plan: On Xarelto - Time Spent with Patient Total time spent is greater than 50% in coordination of care (as documented) at patient's floor/unit and/or counseling patient: Internal Medicine: Result - Labs CBC & Chem 7: 03/24/18 13:07 03/24/18 13:07 Labs: Cardiac Enzymes 03/24/18 03/24/18 Range/Units 19:04 21:53 Troponin I < 0.03 < 0.03 (< 0.04) ng/mL - Impressions Impressions Echocardiogram 03/25/18 07:00 Impressions: LVEF 60%. Indeterminate diastolic function. RV is dilated with low normal function. Severe bi-atrial enlargement. Mild mitral regurgitation. Mild aortic regurgitation. Moderate-severe tricuspid regurgitation. Mild pulmonic regurgitation. Estimated RVSP is 78 mmHg. Severe pulmonary hypertension. Left Ventricular Wall Motion: Rest Echo Findings All wall segments showed normal motion. Findings: Study Quality * Technically adequate exam. ECG Findings * Normal sinus rhythm. Left Ventricle * LVEF 60%. * Normal LV chamber size, wall thickness and function. * Indeterminate diastolic function. Right Ventricle * RV is dilated with low normal function. Left Atrium * Severely dilated left atrium. Right Atrium * Severely dilated right atrium. Mitral Valve * No mitral stenosis. * Mildly thickened mitral valve leaflets. * Mild mitral regurgitation. Aortic Valve * Trileaflet aortic valve. * Mildly thickened aortic valve leaflets. * No aortic stenosis. * Mild aortic regurgitation. Tricuspid Valve * Tricuspid valve not well visualized. * Moderate-severe tricuspid regurgitation. * Estimated RA pressure is 20 mmHg. * Estimated RVSP is 78 mmHg. * Severe pulmonary hypertension. Pulmonic Valve * Pulmonic valve is not well visualized. * No pulmonic stenosis. * Mild pulmonic regurgitation. Pulmonary Artery * Pulmonary artery not well visualized. Aorta * Normally sized aortic root. Pericardium * There is no pericardial effusion present. Interatrial Septum * Interatrial septum not well evaluated. IVC * The IVC is dilated. * < 50% respiratory change. <Bell Martinez M - Last Filed: 03/25/18 14:15> (1) Hypertension Qualifiers: Hypertension type: essential hypertension Qualified Code(s): I10 - Essential (primary) hypertension (2) Atrial fibrillation Qualifiers: Atrial fibrillation type: chronic Qualified Code(s): I48.2 - Chronic atrial fibrillation (3) Hypothyroidism Qualifiers: Hypothyroidism type: unspecified Qualified Code(s): E03.9 - Hypothyroidism, unspecified <Beverly Richey - Last Filed: 03/25/18 17:46> (5) Atrial fibrillation Qualifiers: Atrial fibrillation type: chronic Qualified Code(s): I48.2 - Chronic atrial fibrillation (6) Hypertension Qualifiers: Hypertension type: essential hypertension Qualified Code(s): I10 - Essential (primary) hypertension (7) Hypothyroidism Qualifiers: Hypothyroidism type: unspecified Qualified Code(s): E03.9 - Hypothyroidism, unspecified
[2018-03-25] MEDS: *HR* Labetalol 20 MG/4 ML SYRINGE IVP PRN (14:33)
[2018-03-25] MEDS ORDERED: Isovue-370 500 ML INFUS..BTL IV ONE (16:34)
[2018-03-25] MEDS: hydroCHLOROthiazide 25 MG TABLET PO SCH (17:37)
[2018-03-25] MEDS: Latanoprost 2.5 ML BOTTLE BOTH EYES SCH (20:25)
[2018-03-26 06:13] LABS: Hematocrit 41.2 % (35.3-44.9); Mean Corpuscular HGB Conc 32.8 g/dL (31.6-35.5); Mean Corpuscular Hemoglobin 31.5 pg (28.0-33.3); Mean Corpuscular Volume 96.3 fL (83.0-100.0); Mean Platelet Volume 10.2 fL (9.4-12.4); Platelet Count 147 K/mcL (140-400); Red Blood Count 4.28 M/mcL (3.82-4.97); Red Cell Distribution Width 14.5 % (11.5-14.5)
[2018-03-26 06:15] LABS: Hemoglobin 13.5 g/dL (11.5-15.4)
[2018-03-26 07:04] LABS: BUN/Creatinine Ratio 16 (6-26); Blood Urea Nitrogen 15 mg/dL (8-23); Calcium 9.2 mg/dL (8.6-10.3); Carbon Dioxide 21 mEq/L (23-29); Chloride 107 mEq/L (98-107); Glucose 89 mg/dL (70-105); Osmolality,Calculated 286 (280-300); Potassium 3.5 mEq/L (3.5-5.1); Sodium 138 mEq/L (136-145); eGFR For Non-African Americans 58 (> 60)
[2018-03-26] MEDS: Metoprolol XL (24 HR) Succ 50 MG TAB.ER.24H PO SCH (08:22)
[2018-03-26] MEDS: hydroCHLOROthiazide 25 MG TABLET PO SCH (08:22)
--- NOTE | 2018-03-26 09:05 | Pulmonology Consult Note ---
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, is most likely venous component due to chronic a fib - pt has no hx of COPD, lifetime nonsmoker, denies any s/s of KAREN - has PMH of chronic a Fib, severe biatrial enlargement on ECHO - unlikely to be WHO 4 as pt is on anticoagulation with Xarleto - unlikely to be WHO 1, as pt has no family hx of pHTN - unlikely to be WHO 5, pt has no hx of schistosomiasis exposure/travel outside the [place] Pt has class II or III disease - comfortable at rest and has symptoms when physically active Plan: - talked to pt to consider cardiology for right heart catheter pt would benefit from direct measurement of the pressure of pulm aa and right ventricle, however, she states she wants to continue with conservative management at this time make sure pt has cardiology F/U with Dr. Paris follow up with pulmonology outpatient in 1mo for repeat 6 minute walk test and to consider outpatient sleep study to definitively r/o KAREN - continue blood pressure control as per primary, okay with HCTZ for diuresis - pt would benefit from oxygen qualification as per primary pt desat to 86% on 6-min walk test explained to pt that she would benefit from oxygen use during day and nigh with repeat 6min walk to see if she still needs oxygen - pulmonology will sign off at this time, please re-consult if any further questions (2) Atrial fibrillation Current Visit: Yes Status: Acute Chronic - on xarelto Qualifiers: Atrial fibrillation type: chronic Qualified Code(s): I48.2 - Chronic atrial fibrillation (3) Hypertensive emergency Current Visit: Yes Status: Acute Pt presented w/ SBP in 200's - has headache, blurry vision, weakness Troponin negative, BNP 402 CXR showed cardiomegaly, mild pulmonary vascular congestion Head CT negative ECHO showed severe pHTN BP currently 182/92 Plan: - toprol 100mg qd, losartan 100mg qd - labetolol 10mg IVP q6hr prn - management as per primary (4) Hypoxia Current Visit: Yes Status: Acute Pt presented with hypoxia, O2 sat of On six minute walk test, pt desat to 86% - pt states she has SOB with exertion but is comfortable at rest - is able to complete ADL's Hypoxia likely secondary to pHTN - currently 92% on RA Plan as above. History of Present Illness Consult date: 03/25/18 Requesting physician: Beverly Richey Reason for consult: pulmonary hypertension Chief complaint: "high BP" History of present illness: Ms. Roa is an 87yo female with PMH A fib on xarleot, glaucoma, HTN, and CAD s/p CEA. She presented to [facility] on 03/24 with the cc of weakness from high blood pressure. She states that she just hadn't been feeling right for a few days and that symptoms got worse on Monday, which brought her to the hospital. She had some blurry vision and headaches, which have since resolved. The pt denied any slurred speech, trouble walking, or chest pain. She had no numbness or tingling associated. She states her highest BP was in the 200's. The pt has chronic SOB with exertion and some chest pain with too much exertion, which is at her baseline. She states that she is able to complete her ADL's and can complete most activities, she just can't walk as far as she would like to anymore. She is a lifetime nonsmoker. 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 She has no pets but does enjoy feeding birds. She denies snoring at night, waking up to catch her breath or excessive daytime sleepiness. In the ER the pt had a BP max of 220/109. She was given lopressor. CXR showed cardiomegaly and mild pulmonary vascular congestion. ECHO showed severe pHTN. CT chest showed no pulmonary embolism. Consult is for new severe pHTN seen on ECHO. Hypoxia on exertion, 86% O2 sat in the setting of chronic a fib on xarelto, no hx of lung dz/smoking. Past Med Surg Social Fam HX - Past Medical History Medical history: atrial fibrillation, glaucoma, hypertension, thyroid disease Additional medical history: AFIB, HTN, THYROID INSUFFICIENCY Psychiatric history: no psych history - Past Surgical History Surgical History: non-contributory Additional surgical history: carotid enderectomy - Social History Smoking Status: Never smoker Smokeless Tobacco Status: No Alcohol use: none Drug use: none - Family History Father Hx Family Cardiac Disorders: Yes (ND) Mother Hx Family Cardiac Disorders: Yes (ND) Medications and Allergies RX: Furosemide [Lasix] 20 mg PO DAILY PRN 03/24/18 [History] RX: Latanoprost [Xalatan] 1 drop BOTH EYES HS 03/24/18 [History] RX: Levothyroxine Sodium 50 mcg PO DAILY 03/24/18 [History] RX: Losartan Potassium [Cozaar] 100 mg PO DAILY 03/24/18 [History] RX: Metoprolol Succinate [Kapspargo Sprinkle] 100 mg PO DAILY 03/24/18 [History] RX: Rivaroxaban [Xarelto] 15 mg PO DAILY 03/24/18 [History] RX: hydroCHLOROthiazide [Hydrochlorothiazide] 25 mg PO DAILY 30 Days #30 tablet 03/26/18 [Rx] Allergy/AdvReac Type Severity Reaction Status Date / Time amlodipine [From [facility]] Allergy Cough Verified 03/24/18 13:28 diltiazem Allergy Hives Verified 03/24/18 13:28 lisinopril Allergy Cough Verified 03/24/18 13:28 All Systems: The remainder of the systems were reviewed and are negative - Constitutional Constitutional: weakness, no fatigue, no headache(s) - Cardiovascular Cardiovascular: chest pain with activity, dyspnea on exertion, no chest pain, no chest pain at rest, no dyspnea, no palpitations - Respiratory Respiratory: dyspnea on exertion, no cough, no hemoptysis - Gastrointestinal Gastrointestinal: no abdominal pain, no diarrhea, no melena, no nausea, no vomiting - Musculoskeletal Musculoskeletal: weakness, no numbness, no stiffness, no tingling - Neurological Neurological: focal weakness, weakness, no dizziness, no frequent falls, no headache(s), no numbness, no tremor(s) - Endocrine Endocrine: no fatigue - Hematologic/Lymphatic Hematologic/Lymphatic: no easy bleeding, no easy bruising Physical Examination Vital Signs: Vital Signs, Last 4 Hours Temp Pulse Resp BP Pulse Ox 03/26/18 07:45 97.7 F 71 15 182/92 92 General appearance: no acute distress, alert Eyes: nonicteric ENT: oropharynx moist Mallampati (class): 2 Neck: supple Effort: normal Inspection: normal Auscultation: bilateral: clear Cardiovascular: irregular rhythm Gastrointestinal: normoactive bowel sounds, soft, non-tender, non-distended Integumentary: normal Extremities: no cyanosis, no edema Musculoskeletal: no deformities normal mental status, non-focal exam, CN II-XII normal mood appropriate, affect normal Results - Laboratory Findings CBC and BMP: 03/26/18 05:31 03/26/18 05:31 PT/INR, D-dimer D-Dimer 630 ng/mLFEU (0-500) H 03/25/18 14:20 Abnormal lab findings: Abnormal lab results D-Dimer 630 ng/mLFEU (0-500) H 03/25/18 14:20 Carbon Dioxide 21 mEq/L (23-29) L 03/26/18 05:31 Est GFR (Non-Af Amer) 58 (> 60) L 03/26/18 05:31 Total Bilirubin 1.3 mg/dL (0.3-1.0) H 03/24/18 13:07 B-Natriuretic Peptide 402 pg/mL (Less than 100) H 03/24/18 13:07 Ur Specific [place] < 1.005 (1.010-1.025) L 03/24/18 13:27 Urine Protein 30 mg/dL (Neg-Trace) H 03/24/18 13:27 Urine Blood Small (Negative) H 03/24/18 13:27 Ur Leukocyte Esterase Trace (Negative) H 03/24/18 13:27 Urine Microscopic RBC 3-5 per hpf (0-3) H 03/24/18 13:27 Ur Squamous Epith Cells Moderate per lpf (None-Few) H 03/24/18 13:27 - Clinical Findings Intake & Output: Intake & Output 03/25/18 03/26/18 03/26/18 23:59 07:59 15:59 Intake Total 500 / 500 0 / 0 520 / 520 Output Total 0 / 0 200 / 200 Balance 500 / 500 -200 / -200 520 / 520 Weight 74.4 kg Consult Discharge Plan - Plan Instructions: Hydrochlorothiazide (By mouth), Heart Failure (DC), Chronic Hypertension (DC), Low Sodium Diet (GEN) Referrals: Kiki Hunter MD [Partnered Physician] - (Web request 03/26/2018) Luzma Escalante MD [Primary Care Provider] - 04/02/18 1:45 pm (Please follow up as schedule...) Adriano Paris DO [Partnered Physician] - (Office will call patient when they have date and time from the Physician) Prescriptions: RX: hydroCHLOROthiazide [Hydrochlorothiazide] 25 mg PO DAILY 30 Days #30 tablet <Kiki Hunter - Last Filed: 03/26/18 16:18> Date of Encounter: 03/26/18 All Systems: The remainder of the systems were reviewed and are negative Physical Examination Vital Signs: Vital Signs, Last 4 Hours Pulse BP 03/26/18 12:28 76 162/76 Results - Laboratory Findings CBC and BMP: 03/26/18 05:31 03/26/18 05:31 PT/INR, D-dimer D-Dimer 630 ng/mLFEU (0-500) H 03/25/18 14:20 Abnormal lab findings: Abnormal lab results D-Dimer 630 ng/mLFEU (0-500) H 03/25/18 14:20 Carbon Dioxide 21 mEq/L (23-29) L 03/26/18 05:31 Est GFR (Non-Af Amer) 58 (> 60) L 03/26/18 05:31 Total Bilirubin 1.3 mg/dL (0.3-1.0) H 03/24/18 13:07 B-Natriuretic Peptide 402 pg/mL (Less than 100) H 03/24/18 13:07 Ur Specific [place] < 1.005 (1.010-1.025) L 03/24/18 13:27 Urine Protein 30 mg/dL (Neg-Trace) H 03/24/18 13:27 Urine Blood Small (Negative) H 03/24/18 13:27 Ur Leukocyte Esterase Trace (Negative) H 03/24/18 13:27 Urine Microscopic RBC 3-5 per hpf (0-3) H 03/24/18 13:27 Ur Squamous Epith Cells Moderate per lpf (None-Few) H 03/24/18 13:27 - Clinical Findings Intake & Output: Intake & Output 03/26/18 03/26/18 03/26/18 07:59 15:59 23:59 Intake Total 0 / 0 760 / 760 Output Total 200 / 200 Balance -200 / -200 760 / 760 - Attending Attestation I examined this patient and my medical decision-making was reviewed with the Resident Physician. I agree with the documented findings, disposition and treatment plan as described except to the extent set forth below. Patient seen and examined. Labs, radiology, chart personally reviewed. Agree with resident's history and physical, assessment, plan with following comments: 911 TELECOMMUNICATOR: Patient follows commands, Pulmonary: Acceptable oxygenation and ventilation. Patient has evidence of pu lmonary hypertension which is most likely pulmonary venous hypertension from her underlying cardiac disease and this will be group 2. I had long discussion with the patient regarding the workup and patient will see her [employer] department supervisor as outpatient so on and can discuss with him regarding pulmonary protection and need for right heart catheterization. I feel symptomatic treatment is appropriate, however I have told her if she wants to be more aggressive to know the underlying cause for her pulmonary hypertension then she will need right heart catheterization. I feel she will need a sleep study also as outpatient because of her underlying cardiac disease and to evaluate for groups 3 over pulmonary hypertension. Patient will think about it and then will let us know. Patient can follow-up as outpatient to have a follow-up 6 minute walk to see if she will need oxygen therapy. They feel that she would need to be on long-term diuretics. Cardiovascular: Follow-up with the [employer] and [employer] department supervisor as outpatient Thank you for consultation and please call for any questions.
[2018-03-26 12:29] VITALS: BP 162/76
[2018-03-26] MEDS ORDERED: Ondansetron ODT 4 MG TAB.RAPDIS SL PRN (13:15)
--- NOTE | 2018-03-26 13:45 | Discharge Summary ---
<Taras Gasca Frannie - Last Filed: 03/26/18 13:36> - NOTES TO OUTPATIENT PROVIDER Notes to Outpatient Provider: Ms. Roa was admitted for hypertensive emergency with dizziness and blurred vision, acute hypoxic respiratory failure, Atrial Fibrillation. Head CT negative, vascular congestion on chest xray. Blood p ressure was stabilized with medical management. Echocardiogram demonstrated severe pulmonary hypertension. Chest CTA negative for pulmonary embolism, patient already anticoagulated on Xarelto. Pulmonology consulted and recommended cardiology consultation with right heart catheterization. Patient refused inpatient RHC. Cardiology recommmended outpatient follow up. Blood pressure and hypoxia stablilized, patient will be discharged with additional hydrochlorothiazide and home O2 2L NC, with Cardiology follow up in 1 week and Pulmonology follow up. Orders not resulted at time of discharge: Pending orders 03/25/18 10:05 EKG [ECG 12 lead ECG] [ECG] Routine Date of Encounter: 03/26/18 Time of Encounter: 13:36 - Discharge Diagnosis (1) Hypertensive emergency Priority: Primary Status: Resolved Assessment and Plan: Patient with PMH atrial fibrillation and hypertension presented with hypertensive emergency with slurred speech, headache, change in vision, weakness, feeling of un-wellness and "just not right". Blood pressure in ED was 220/109's with a heart rate of 81. She was given a dose of 5 mg Lopressor. Prior to going to floor her blood pressure was noted to be 217/104 so 10 mg labetalol was given. The patient reported that she has been compliant with her blood pressure medications including metoprolol, losartan, Xarelto. She takes Lasix as needed for lower extremity swelling. -Etiology includes possibly missing doses of her blood pressure medication, CHF, stroke ruled out with negative head CT -Troponin negative x3 -BNP 402 -Chest x-ray demonstrating cardiomegaly with mild pulmonary vascular congestion. -Head CT negative for acute intracranial abnormality. Indeterminate calcifications in the medial aspect of right lobe, likely benign -EKG: atrial fibrillation, HR 99, no acute ST or T wave changes indicating ischemia. Unchanged from previous. -03/25/2018 EKG: atrial fibrillation, HR 66, no ST or T wave changes indicating ischemia. Plan: -BP is improved and stable in 160s systolic. Will discharge with hydrochlothiazide 25 mg daily in addition to home meds -continue the patient's metoprolol 100 qd and losartan 100mg qd. (2) Hypertension Priority: Secondary Status: Chronic Assessment and Plan: History of hypertension taking metoprolol and losartan. She reports taking Las ix as needed for lower extremity swelling. She stated that normal blood pressure is 140 systolic for her. -Plan as above Qualifiers: Hypertension type: essential hypertension Qualified Code(s): I10 - Essential (primary) hypertension (3) Atrial fibrillation Priority: Secondary Status: Chronic Assessment and Plan: History of known atrial fibrillation on anticoagulation with Xarelto and rate controlled with metoprolol heart rate controlled -continue home metoprolol and Xarelto at discharge Qualifiers: Atrial fibrillation type: chronic Qualified Code(s): I48.2 - Chronic atrial fibrillation (4) Hypothyroidism Priority: Secondary Status: Chronic Assessment and Plan: History of known hypothyroidism taking levothyroxine -continue home levothyroxine Qualifiers: Hypothyroidism type: unspecified Qualified Code(s): E03.9 - Hypothyroidism, unspecified (5) Hypoxia Priority: Secondary Status: Acute Assessment and Plan: Patient noted to have hypoxia when exerting herself. 86% oxygen saturation on 6 minute walk test. Etiology includes severe pulmonary hypertension demonstrated by echocardiogram. Unlikely to be pulmonary embolism since anticoagulated on Xarelto and negative CTA chest Chest x-ray demonstrated public vascular congestion. Afebrile, WBC WNL, 90% on room air lungs were clear to auscultation no obvious signs of infection. Urinalysis is positive for leukocyte esterase however the patient is asymptomatic. D-dimer 630 Plan: -discharge with supplemental O2 (6) Pulmonary hypertension Priority: Secondary Status: Acute Assessment and Plan: New right severe pulmonary hypertension TTE: LVEF 60%, severe biatrial enlargement, mild mitral regurgitation, mild aortic regurgitation, moderate to severe tricuspid regurgitation, mild pulmonic regurgitation, severe pulmonary hypertension with estimated RVSP 78mmHg. -This is most likely concerning for type II pulmonary hypertensions in setting of chronic atrial fibrillation on anticoagulation. No past medical history of lung disease or smoking. -Troponin negative x3 -03/25/2018 EKG: atrial fibrillation, HR 66, no ST or T wave changes indicating ischemia. Plan: -continue treatment for patients atrial fibrillation and hypertension with improved blood pressure control. -Cardiology was consulted and believed that pulmonology should instead be consulted as they believed this to be more a they pulmonary etiology. Pulmonology recommended Cardiology consultation and right heart catheterization. Patient refused inpatient catheterization. Cardiology then recommended outpatient follow up as patient is already following with Dr. Paris. Dr. Alves office stated they would call the patient to make an appointment in the next week. Pulmonology follow up scheduled. Hospital course: Ciara Roa is an 87-year-old female who presented to the ED 2 days ago w/ HTN emergency, dizziness, weakness, and some slurred speech. CT Head was negative for acute process. Her BP at the time of admission was 206/183. She complained of ongoing dyspnea for the past few days upon admission, and she has a history of uncontrolled BP. Her PMHx includes Afib, HTN, and thyroid disease. She had an echo performed yesterday that showed severe pulmonary HTN, mild mitral regurg, mild aortic regurg, mild pulmonic regurg, moderate-severe tricuspid regurg, and severe bi-atrial enlargement, chest CTA performed yesterday as well, and it ruled out a PE. Cardiology was consulted and said for her to F/U outpatient, and said to consult pulmonology. Pulmonology was consulted and said to consider cardiology for a R heart catheterization, and that the patient would benefit from direct measurement of the pressure of the pulmonary arteries and RV. Pulmonology discussed having a R heart cath with her, and she does not agree with having one performed. She insists on an outpatient cardiology appointment with Dr. Mujica, and a pulmonology appointment. Patient will be discharged on daily hydrochlorothiazide, lopressor, losartan and PRN labetolol. Patient will also continue daily xarelto for her Afib. [facility] office was called and stated they will call the patient to make an appointment. Pulmonology follow up is scheduled. Discharge discussed with: patient, family, nurse - Time Spent with Patient Total time spent providing and/or coordinating discharge services: - Discharge Medications Prescriptions: hydroCHLOROthiazide [Hydrochlorothiazide] 25 mg PO DAILY 30 Days #30 tablet Home Medications: Furosemide [Lasix] 20 mg PO DAILY PRN 03/24/18 [History] Latanoprost [Xalatan] 1 drop BOTH EYES HS 03/24/18 [History] Levothyroxine Sodium 50 mcg PO DAILY 03/24/18 [History] Losartan Potassium [Cozaar] 100 mg PO DAILY 03/24/18 [History] Metoprolol Succinate [[place]sp[place] Sprinkle] 100 mg PO DAILY 03/24/18 [History] Rivaroxaban [Xarelto] 15 mg PO DAILY 03/24/18 [History] hydroCHLOROthiazide [Hydrochlorothiazide] 25 mg PO DAILY 30 Days #30 tablet 03/26/18 [Rx] Allergies/Adverse Reactions: Allergy/AdvReac Type Severity Reaction Status Date / Time amlodipine [[facility]] Allergy Cough Verified 03/24/18 13:28 diltiazem Allergy Hives Verified 03/24/18 13:28 lisinopril Allergy Cough Verified 03/24/18 13:28 Date of admission: 03/24/18 16:13 Primary care physician: Luzma Escalante Consults: 03/25/18 13:47 Consult to Journeyman Lineman [CONS] Routine Reason for SW Consult: qualifed for home oxygen 03/25/18 17:47 Consult to Pulmonology [CONS] Routine Consulting Provider: [facility] [place] Reason for Consult: New Severe pulmonary hypertension. Hypoxia on exertion 86% saturation. In setting of chronic atrial fibrillation on Xarelto. No lung disease history or smoking. Call Completed: Yes Discharging clinician: Taras Gasca Anticipated date of discharge: 03/26/18 - Constitutional Vitals: Temp Pulse Resp BP Pulse Ox 97.6 F 76 15 162/76 92 03/26/18 11:24 03/26/18 12:28 03/26/18 11:24 03/26/18 12:28 03/26/18 11:24 Exam: Gen: patient A/Ox3. In no acute distress. Neck: soft, supple, trachea midline. No cervical lymphadenopathy present. No thyromegaly. CV: regular rate w/ an irregularly irregular rhythm. No murmurs, gallop, or rubs auscultated. Resp: CTA bilaterally w/ full breath sounds, symmetric thorax. No wheezes, rhonchi, or rales. GI: soft, non-tender, non-distended. BSx4. No hepatomegaly, splenomegaly, or lesions noted. Neuro: sensation normal in UE and LE bilaterally. Strength normal in UE and LE bilaterally. Extrem: Radial and dorsalis pedis pulses +2 bilaterally. No LE edema. No rashes noted. - Patient Status Disposition: Home, Self-Care Condition: Good Functional capacity at discharge: independent ambulation Overall status at discharge: patient is not back to baseline - Discharge Instructions Instructions: Hydrochlorothiazide (By mouth), Heart Failure (DC), Chronic Hypertension (DC), Low Sodium Diet (GEN) Follow Up With: Kiki Hunter MD [Partnered Physician] - (Web request 03/26/2018) Luzma Escalante MD [Primary Care Provider] - 04/02/18 1:45 pm (Please follow up as schedule...) Adriano Paris DO [Partnered Physician] - (Office will call patient when they have date and time from the Physician) - Diet and Activity Activity: increase activity as tolerated, other (wear oxygen when active) Diet: low salt diet <Bell Martinez - Last Filed: 03/26/18 14:55> Orders not resulted at time of discharge: Pending orders 03/25/18 10:05 EKG [ECG 12 lead ECG] [ECG] Routine Date of Encounter: 03/26/18 - Discharge Diagnosis (1) Hypertension Status: Chronic Qualifiers: Hypertension type: essential hypertension Qualified Code(s): I10 - Essential (primary) hypertension (2) Atrial fibrillation Status: Chronic Qualifiers: Atrial fibrillation type: chronic Qualified Code(s): I48.2 - Chronic atrial fibrillation (3) Hypothyroidism Status: Chronic Qualifiers: Hypothyroidism type: unspecified Qualified Code(s): E03.9 - Hypothyroidism, unspecified (4) Hypertensive emergency Status: Resolved (5) Hypoxia Status: Acute (6) Pulmonary hypertension Status: Acute Hospital course: Ms. Roa is a 87 year old female - Time Spent with Patient Total time spent providing and/or coordinating discharge services: Greater than 30 minutes (50 min) Date of admission: 03/24/18 16:13 Primary care physician: Luzma Escalante Consults: 03/25/18 13:47 Consult to Journeyman Lineman [CONS] Routine Reason for SW Consult: qualifed for home oxygen 03/25/18 17:47 Consult to Pulmonology [CONS] Routine Consulting Provider: [facility] [place] Reason for Consult: New Severe pulmonary hypertension. Hypoxia on exertion 86% saturation. In setting of chronic atrial fibrillation on Xarelto. No lung diseas e history or smoking. Call Completed: Yes - Constitutional Vitals: Temp Pulse Resp BP Pulse Ox 97.6 F 76 15 162/76 92 03/26/18 11:24 03/26/18 12:28 03/26/18 11:24 03/26/18 12:28 03/26/18 11:24 - Patient Status Overall status at discharge: patient is progressing back to baseline - Diet and Activity Activity: other - Attending Attestation I examined this patient and my medical decision-making was reviewed with the Resident Physician Dr Gasca. I agree with the documented findings, disposition and treatment plan as described except to the extent set forth below. admitted for htn emergency with resolved neurologic symptoms but persistently elevated bps. Family then reported hypoxia at home that pt did not report on admission and we have seen evidence here. Echo and CT of chest showed right heart strain and severe pulm htn. We discussed with cardiology team as she follows with cards here outpt and she was seen by pulm team. Pt throughout admit was incredibly eager for dc, pacing room and requesting discharge frequently. BP rechecks after her sitting for some time were always improved, including on day of dc. She declined inpt cards eval for right heart cath but is willing to see them outpt with pulm and cards fu outpt and appt requests in place at time of dc. She is stable for dc to home with close outpt fu and counseled on symptoms that would prompt return to ed/call to outpt office. awake, daughter at bedside. pt denies any lau, vision changes, cp, pressure or palpaitions. at no time this admit did she have neuro symptoms. She deneis any sob here, though she did qualify for home o2. She was very reluctant at first to go home with oxygen but after further discussion with family she agreed. gen- alert, awake,appears stated age cv- reg rate and irre/irreg rhythm, normal s1,s2, no murmurs appreciated, no le edema lungs- ctabl, no wheezing, rhonchi or crackles, normal resp effort on ra neuro- AAOx3, CN grossly intact, clear speech HTN emergency given neuro changes, neuro changes now resolved Elevated BP improved Severe Pulm HTN - echo showed normal RV dysfunction, bilateral atrial enlargement, severe pulm htn, -CTA chest showed massively enlarged RA -this case was discussed with Dr Mena by senior resident 03/25 with RV and RA findings emphasized and consult placed, however she did not think this was necessary for pt to be seen by cards inpt and recommended pulm consult instead--consult was discontinued -pulm was agreeable to seeing pt and recommended cardiology consult with RHC to assess right heart pressures- the pt does not want to do this inpt and declined cards consult inpt. She is agreeable to seeing them outpt to discuss further -cards was made aware by our team and outpt close 1 week fu is being arranged -cont home BB, arb and new HCTZ--of note, am bps on day of dc were elevated, but pt up in room, walking, very very eager for dc, encouraged to rest then bp recheck acceptable for dc Slurred speech,resolved prior to presentation, 2/2 htn emergency vs tia-no focal neuro deficits and NIH scale 0 throughout admit, ct head neg HTN,vs tia Acute resp failure with Hypoxia 2/2 Severe Pulm HTN most likely -o2 sats stable at rest but into mid 80s on exertion -CTA severe pulm htn, no pna or pe, no sig effusions -cont bp management, new hctz, outpt rx prn lasix, new home o2, fu with cards to rule out ischemic cause Persistent rate controlled afib on xarelto further diagnoses and treatment as documented by resident
--- NOTE | 2018-03-26 16:02 | Electrocardiograph Report ---
[address] [address] Test Date: 2018-03-24 Pat Name: Ciara Roa Department: [id number] Room: 2A39 Gender: F Strategy Analyst: : 1930 Requested By: Josh Ochoa Order Number: [id number] Reading MD: Naman Sheridan Measurements Intervals [place] Rate: 99 P: [place]: QRS: 127 QRSD: 89 T: -7 QT: 375 QTc: 482 Interpretive Statements Probable limb leads reveral, please repeat ECG Atrial fibrillation Borderline T abnormalities, inferior leads Electronically Signed On 03-26-2018 16:00:59 EST by Naman Sheridan
--- NOTE | 2018-03-26 16:56 | Electrocardiograph Report ---
[address] [place] [address] Test Date: 2018-03-25 Pat Name: Ciara Roa Department: 109 Room: 2A39 Gender: F Chemist Inorganic: : 1930 Requested By: Beverly Richey Order Number: [id number] Reading MD: Andree Mena Measurements Intervals [place] Rate: 52 P: [place]: 0 QRS: 64 QRSD: 104 T: -6 QT: 461 QTc: 442 Interpretive Statements ATRIAL FIBRILLATION WITH SLOW VENTRICULAR RESPONSE Electronically Signed On 03-26-2018 16:54:55 EST by Andree Mena
[2018-03-26] MEDS ORDERED: *HR* Rivaroxaban 15 MG TABLET PO SCH (17:00)
--- NOTE | 2018-03-27 12:59 | Electrocardiograph Report ---
[place] [address] Test Date: 2018-03-25 Pat Name: Ciara Roa Department: 101 Room: 2A39 Gender: F Geriatric Case Manager: : 1930 Requested By: Beverly Richey Order Number: [id number] Reading MD: Bryant Pineda Measurements Intervals [place] Rate: 66 P: [place]: 0 QRS: 70 QRSD: 105 T: -5 QT: 428 QTc: 441 Interpretive Statements Atrial fibrillation with controlled ventricular response Electronically Signed On 03-27-2018 12:57:44 EST by Bryant Pineda
== END 2018-03-26 15:57 | disposition home or self-care (01) | DRG 304 ==
LOC: EMEROOARM 12:58 → 3BNU 12:58 → 2ANU 15:35 → SUATTDRO 16:13 → 2ANU 16:24
PROVIDERS: ADMIT Internal Medicine Cardiovascular Disease; ATTEND Internal Medicine

== ENCOUNTER 2019-01-01 08:42 | Observation (INO) ==
[2019-01-01 09:46] LABS: Hematocrit 42.1 % (35.3-44.9); Hemoglobin 13.7 g/dL (11.5-15.4); Mean Corpuscular HGB Conc 32.5 g/dL (31.6-35.5); Mean Corpuscular Hemoglobin 32.1 pg (28.0-33.3); Mean Corpuscular Volume 98.6 fL (83.0-100.0); Mean Platelet Volume 10.3 fL (9.4-12.4); Platelet Count 175 K/mcL (140-400); Red Blood Count 4.27 M/mcL (3.82-4.97); Red Cell Distribution Width 17.2 % (11.5-14.5); White Blood Count 4.8 K/mcL (4.3-11.1)
[2019-01-01 09:52] LABS: Potassium 3.8 mEq/L (3.5-5.1); Troponin I 0.03 ng/mL (< 0.04)
[2019-01-01 10:11] LABS: Eosinophils # 0.3 K/mcL (0.0-0.6); Lymphocytes # 1.3 K/mcL (0.6-4.6); Monocytes # 0.5 K/mcL (0.0-1.3); Neutrophils # 2.8 K/mcL (1.6-8.9)
[2019-01-01 10:12] LABS: Platelet Estimate Normal (Normal)
[2019-01-01 10:14] LABS: Anisocytosis 1+ (Not Present); Poikilocytosis 1+ (Not Present)
--- NOTE | 2019-01-01 10:40 | Emergency Department Note ---
Disposition Clinical Impression: ISSA (acute kidney injury) CHF (congestive heart failure) Qualifiers: Heart failure type: unspecified Heart failure chronicity: acute on chronic Qualified Code(s): I50.9 - Heart failure, unspecified Disposition: Admitted As Inpatient Condition: Fair Time of Disposition: 10:35 General Adult HPI - General Chief complaint: ED General Medical Stated complaint: Needs admission Time Seen by Provider: 01/01/19 09:04 Source: patient, family Limitations: no limitations Nursing Notes Reviewed: Yes Vital Signs Reviewed: Yes - History of Present Illness HPI Narrative: 88-year-old female presents emergency department for evaluation of bilateral lower extremity swelling. Patient has a history of congestive heart failure which required inpatient admission for diuresis in the past. Previously she became hyponatremic down to 114 with her previous episode of acute congestive heart failure. Patient states she was discharged home but was not given prescriptions for Lasix. She subsequently had increased swelling the bilateral lower extremities. She is been following with Dr. Paris for diuresis using oral Lasix however she has persistent swelling of the bilateral lower extre mities. Patient states she tries to elevate her lower extremities however it does not happen often. Patient is taking sodium replacement secondary to her hyponatremia in the past. Patient contacted Dr. Paris this morning regarding her case and presentation who recommended that she be brought to the emergency department and admitted to the hospital for diuresis and further care. Patient denies chest pain, syncope, near-syncope, diaphoresis, nausea, vomiting, diarrhea, hematochezia, melena. Denies dysuria or hematuria. Patient states that she does have increased urine production with her Lasix . Patient denies fever, chills, recent trauma. Pain Scale: 0 - Related Data Home Medications Medication Instructions Recorded Confirmed Latanoprost [Xalatan] 1 drop BOTH EYES HS 03/24/18 01/01/19 Levothyroxine Sodium 50 mcg PO QAM 03/24/18 01/01/19 Losartan Potassium [Cozaar] 100 mg PO DAILY 03/24/18 01/01/19 Rivaroxaban [Xarelto] 15 mg PO DAILY 03/24/18 01/01/19 Isosorbide MONOnitrate [Isosorbide 30 mg PO DAILY 10/23/18 01/01/19 Mononitrate ER] Metoprolol Succinate [Toprol Xl] 100 mg PO DAILY 10/24/18 01/01/19 Allergies Allergy/AdvReac Type Severity Reaction Status Date / Time amlodipine [From [facility]] Allergy Cough Verified 01/01/19 08:46 diltiazem Allergy Hives Verified 01/01/19 08:46 lisinopril Allergy Cough Verified 01/01/19 08:46 All systems ED: reviewed and negative except as stated. Review of Systems: As Per HPI Past Medical History - Past Medical History Attestation: Yes The following information was validated with the patient. Source: patient Medical history: Reports: atrial fibrillation, glaucoma, hypertension, thyroid disease Surgical history: Reports: non-contributory Psychiatric history: Reports: no psych history - Social History Smoking Status: Never smoker Smokeless Tobacco Status: No Alcohol use: Reports: none Drug use: Reports: none Physical Exam General: Alert and in no acute distress Skin: Warm, dry, intact Head: Normocephalic and atraumatic Neck: Supple, trachea midline and no tenderness Cardiovascular: RRR, no murmur, normal perfusion Respiratory: CTAB, no wheezing, cough, or respiratory distress Musculoskeletal: Normal strength, patient has +2 pitting edema bilateral lower extremities. GI: Soft, nontender, nondistended. Bowel sounds present Neuro: A&O to person, place, time and situation. No focal deficits noted on exam Psychiatric: cooperative and appropriate mood and affect. - General Limitations: no limitations General appearance: alert, in no apparent distress Course Vital Signs Temperature 97.4 F L 01/01/19 08:44 Pulse Rate 73 01/01/19 08:44 Respiratory Rate 18 01/01/19 08:44 Blood Pressure 118/74 01/01/19 08:44 O2 Sat by Pulse Oximetry 93 01/01/19 08:44 Temperature 97.4 F L 01/01/19 08:44 Pulse Rate 72 01/01/19 12:13 Respiratory Rate 14 01/01/19 10:57 Blood Pressure 129/93 01/01/19 12:13 O2 Sat by Pulse Oximetry 91 01/01/19 12:13 Oxygen Delivery Oxygen Delivery Room Air Medical Decision Making - MDM Narrative Medical decision making narrative: Patient has elevated BNP. Elevated creatinine. Patient given Lasix in the emergency department. She will be admitted to the hospitalist for further care and evaluation. - Medical Records Medical records reviewed: Yes I reviewed the patient's medical records. - Lab Data Lab results reviewed: Yes I reviewed the patient's lab results. Result diagrams: 01/01/19 09:20 01/01/19 09:20 Lab Results 01/01/19 01/01/19 01/01/19 Range/Units 09:20 09:20 09:20 WBC 4.8 (4.3-11.1) K/mcL RBC 4.27 (3.82-4.97) M/mcL Hgb 13.7 (11.5-15.4) g/dL Hct 42.1 (35.3-44.9) % MCV 98.6 (83.0-100.0) fL MCH 32.1 (28.0-33.3) pg MCHC 32.5 (31.6-35.5) g/dL RDW 17.2 H (11.5-14.5) % Plt Count 175 (140-400) K/mcL MPV 10.3 (9.4-12.4) fL Seg Neutrophils % 58.0 % Lymphocytes % 26.0 % Monocytes % 10.0 % Eosinophils % 6.0 % Neutrophils # 2.8 (1.6-8.9) K/mcL Lymphocytes # 1.3 (0.6-4.6) K/mcL Monocytes # 0.5 (0.0-1.3) K/mcL Eosinophils # 0.3 (0.0-0.6) K/mcL Platelet Estimate Normal (Normal) Poikilocytosis 1+ A (Not Present) Anisocytosis 1+ A (Not Present) Sodium 139 (136-145) mEq/L Potassium 3.8 (3.5-5.1) mEq/L Chloride 105 (98-107) mEq/L Carbon Dioxide 25 (23-29) mEq/L BUN 22 (8-23) mg/dL Creatinine 1.42 H (0.60-1.20) mg/dL Est GFR ( Amer) 42 L (> 60) Est GFR (Non-Af Amer) 35 L (> 60) BUN/Creatinine Ratio 15 (6-26) Glucose 96 (70-105) mg/dL Calculated Osmolality 291 (280-300) Lactic Acid 1.0 (0.5-2.2) mmol/L Calcium 9.0 (8.6-10.3) mg/dL Troponin I 0.03 (< 0.04) ng/mL B-Natriuretic Peptide (Less than 100) pg/mL 01/01/19 Range/Units 09:20 WBC (4.3-11.1) K/mcL RBC (3.82-4.97) M/mcL Hgb (11.5-15.4) g/dL Hct (35.3-44.9) % MCV (83.0-100.0) fL MCH (28.0-33.3) pg MCHC (31.6-35.5) g/dL RDW (11.5-14.5) % Plt Count (140-400) K/mcL MPV (9.4-12.4) fL Seg Neutrophils % % Lymphocytes % % Monocytes % % Eosinophils % % Neutrophils # (1.6-8.9) K/mcL Lymphocytes # (0.6-4.6) K/mcL Monocytes # (0.0-1.3) K/mcL Eosinophils # (0.0-0.6) K/mcL Platelet Estimate (Normal) Poikilocytosis (Not Present) Anisocytosis (Not Present) Sodium (136-145) mEq/L Potassium (3.5-5.1) mEq/L Chloride (98-107) mEq/L Carbon Dioxide (23-29) mEq/L BUN (8-23) mg/dL Creatinine (0.60-1.20) mg/dL Est GFR ( Amer) (> 60) Est GFR (Non-Af Amer) (> 60) BUN/Creatinine Ratio (6-26) Glucose (70-105) mg/dL Calculated Osmolality (280-300) Lactic Acid (0.5-2.2) mmol/L Calcium (8.6-10.3) mg/dL Troponin I (< 0.04) ng/mL B-Natriuretic Peptide 601 H (Less than 100) pg/mL - Radiology Data Radiology results reviewed: Yes I reviewed the patient's radiology results. - EKG Data EKG #1 EKG attestation: Yes I reviewed and interpreted this EKG. EKG results narrative: Atrial fibrillation with a rate of 78 without evidence of STEMI or other dysrhythmia.
[2019-01-01] MEDS ORDERED: Furosemide 40 MG/4 ML VIAL IVP ONE (10:44)
[2019-01-01] MEDS ORDERED: MOM Conc 10 ML UD.LIQ PO PRN (11:30)
[2019-01-01] MEDS ORDERED: Naloxone 0.4 MG/ML INJ IVP PRN (11:30)
[2019-01-01] MEDS ORDERED: Ondansetron ODT 4 MG TAB.RAPDIS SL PRN (11:30)
[2019-01-01] MEDS ORDERED: Mag Hydrox/Al Hydrox/Simeth 30 ML UDC PO PRN (11:30)
--- NOTE | 2019-01-01 11:34 | Internal Med History&Physical ---
Date of Encounter: 01/01/19 Time of Encounter: 11:10 Internal Medicine - H&P: HPI Chief complaint: swelling and short of breath Admitted From: Emergency Dept Plans for Post Hospital Care: Home History of present illness: Ms. Roa is a 88 year old female with hx of CHF presented to ED with increased dyspnea and swelling. She was evaluated and placed in observation. Ms Roa and daughter presented to ED due to dyspnea and swelling. She has had issues with CHF over last 2 months and says it gets better and then worse. Over last couple days she has noticed worsening symptoms again. Denies CP, fever or chills. No GI issues. Feels like her stomach is bloated - "feel ." She called cardiology office today and was instructed to go to ED to be admitted for further treatment. Sleeps on 2 pillows. Denies PND. Feels edema is worse than baseline. In the past she has been hospitalized for diuresis and has become hyponatremic. Elevation of legs has not helped and she has been on PO lasix and salt replacement. At the time of my evaluation she is resting in bed comfortably. Daughter is at bedside. Past Med Surg Social Fam HX - Past Medical History Source: patient Medical history: atrial fibrillation, glaucoma, hypertension, thyroid disease Additional medical history: AFIB, HTN, THYROID INSUFFICIENCY Psychiatric history: no psych history - Past Surgical History Surgical History: non-contributory Additional surgical history: carotid enderectomy - Social History Smoking Status: Never smoker Smokeless Tobacco Status: No Alcohol use: none Drug use: none - Family History Mother Hx Family Cardiac Disorders: Yes (MS) Father Hx Family Cardiac Disorders: Yes (MS) Internal Medicine - H&P: Meds Latanoprost [Xalatan] 1 drop BOTH EYES HS 03/24/18 [History] Levothyroxine Sodium 50 mcg PO QAM 03/24/18 [History] Losartan Potassium [Cozaar] 100 mg PO DAILY 03/24/18 [History] Rivaroxaban [Xarelto] 15 mg PO DAILY 03/24/18 [History] Isosorbide MONOnitrate [Isosorbide Mononitrate ER] 30 mg PO DAILY 10/23/18 [History] Metoprolol Succinate [Toprol Xl] 100 mg PO DAILY 10/24/18 [History] Allergy/AdvReac Type Severity Reaction Status Date / Time amlodipine [From [facility]] Allergy Cough Verified 01/01/19 08:46 diltiazem Allergy Hives Verified 01/01/19 08:46 lisinopril Allergy Cough Verified 01/01/19 08:46 All Systems PM: A 10-system review of systems was performed and is negative for pertinent findings except as documented above in the HPI. - Constitutional Constitutional: fatigue, weight gain - EENT Eyes: no diplopia, no loss of vision Ears: no decreased hearing Nose, mouth and throat: no dry mouth, no sinus pain - Cardiovascular Cardiovascular ROS IM: dyspnea, dyspnea on exertion, edema, no chest pain, no orthopnea, no paroxysmal nocturnal dyspnea - Respiratory Respiratory: dyspnea, dyspnea on exertion, no cough, no wheezing, no chest congestion - Gastrointestinal Gastrointestinal: no abdominal pain, no diarrhea, no nausea, no tenesmus - Genitourinary Genitourinary: no difficulty urinating, no dysuria - Musculoskeletal Musculoskeletal ROS IM: no back pain, no joint swelling - Integumentary Integumentary IM: no rash - Neurological Neurological ROS: no dizziness, no numbness, no vertigo - Endocrine Endocrine IM: no excessive sweating - Hematologic/Lymphatic Hematologic/Lymphatic: no easy bleeding - Allergic/Immunologic Allergic/Immunologic: no seasonal rhinorrhea - Constitutional Vitals: Temp Pulse Resp BP Pulse Ox 97.4 F L 77 14 138/95 93 01/01/19 08:44 01/01/19 10:57 01/01/19 10:57 01/01/19 10:57 01/01/19 10:57 General appearance: Present: A&O X 3, pleasant, answers questions appropriately Exam: See below - Head Head exam: Present: atraumatic, normocephalic - Eye Eye exam: Present: EOMI, conjuntiva pink - ENT ENT exam: Present: mucous membranes moist - Neck Neck exam general surgery: Present: normal inspection, supple. Absent: nuchal rigidity - Respiratory Respiratory exam: Present: decreased breath sounds. Absent: rales, rhonchi, wheezes - Cardiovascular Cardiovascular exam: Present: distant heart sounds, irregular rhythm. Absent: tachycardia - GI/Abdominal GI/Abdominal exam: Present: distended (? fluid), soft. Absent: tenderness - Extremities Exam Extremities exam: Present: pedal edema, warm. Absent: calf tenderness, tenderness - Neurological Exam Neurological exam: Present: alert, oriented X3, no focal deficits - Psychiatric Psychiatric exam: Present: normal affect, normal mood - Skin Skin exam: Present: dry, warm. Absent: rash Internal Med - H&P Results - Labs CBC & Chem 7: 01/01/19 09:20 01/01/19 09:20 Labs: Short CBC 01/01/19 Range/Units 09:20 WBC 4.8 (4.3-11.1) K/mcL Hgb 13.7 (11.5-15.4) g/dL Hct 42.1 (35.3-44.9) % Plt Count 175 (140-400) K/mcL Neutrophils # 2.8 (1.6-8.9) K/mcL BMP 01/01/19 09:20 Sodium 139 Potassium 3.8 Chloride 105 Carbon Dioxide 25 BUN 22 Creatinine 1.42 H Glucose 96 Calcium 9.0 Cardiac Enzymes 01/01/19 Range/Units 09:20 Troponin I 0.03 (< 0.04) ng/mL - Impressions ITS Impressions Chest X-Ray 01/01/19 09:07 IMPRESSION: 1. Enlarged cardiomediastinal silhouette appears unchanged. 2. No evidence of focal consolidation, significant pleural effusion, or pneumothorax. D/ / Darrick Rodriguez MD / Darrick Rodriguez MD Interpreting Provider: Darrick Rodriguez MD - Assessment and Plan (1) CHF (congestive heart failure) Current Visit: Yes Status: Acute Assessment and plan: Pt presented to ED with complaints of increased dyspnea and edema. Placed in observation for acute exac CHF. Observation on telemetry. IV diuresis while watching sodium. Cardiology eval as was sent by office for admission. Last echo in 11/09 - EF 60%. Severe TR with severely dilated atria. Qualifiers: Heart failure type: diastolic Heart failure chronicity: acute on chronic Qualified Code(s): I50.33 - Acute on chronic diastolic (congestive) heart failure (2) ISSA (acute kidney injury) Current Visit: Yes Status: Acute Assessment and plan: Pt has slight increase in creatinine today (and yesterday). Monitor while diuresing. (3) Atrial fibrillation Current Visit: No Status: Chronic Assessment and plan: Currently rate controlled. Continue Xarelto. Qualifiers: Atrial fibrillation type: chronic Qualified Code(s): I48.2 - Chronic atrial fibrillation (4) Hypertension Current Visit: No Status: Chronic Assessment and plan: Controlled at this time. Qualifiers: Hypertension type: essential hypertension Qualified Code(s): I10 - Essential (primary) hypertension (5) Hypothyroidism Current Visit: No Status: Chronic Assessment and plan: Continue home meds. Recheck TSH in AM (last was 5.073 in 11/09) Qualifiers: Hypothyroidism type: acquired Qualified Code(s): E03.9 - Hypothyroidism, unspecified - Summary of Assessment and Plan Summary of Assessment and Plan: Xarelto for DVT prophylaxis - Time Spent With Patient Total time spent is greater than 50% in coordination of care (as documented) at patient's floor/unit and/or counseling patient:
--- NOTE | 2019-01-01 14:13 | Cardiology Consult Note ---
Date of Encounter: 01/01/19 Assessment and Plan (1) CHF (congestive heart failure) Current Visit: Yes Status: Acute Qualifiers: Qualified Code(s): I50.9 - Heart failure, unspecified Discussion w patient/family: The assessment and plan as outlined above was discussed with the patient and/or family members who expressed understanding and agreement. All questions were answered. Thank you for involving us in the care of your patient. Please call with any questions. History of Present Illness Consult date: 01/01/19 Requesting physician: Sukhdev Castillo Consult reason: CHF exacerbation Chief complaint: Bilateral lower extremity swelling History of present illness: Ms. Roa is an 88 year old female presenting with bilateral lower extremity swelling in context of congestive heart failure. She has been following with Dr. Paris outpatient for diuresis with oral Lasix but bilateral lower extremity swelling is persistent. Patient has been trying to elevate legs at home but does this very infrequently. This mornign, patient contacted Dr. Paris who recommended she come to ED for admission for diuresis and care. PMH includes HTN, Afib, pulmonary HTN, CKD3. Patient has needed inpatient management for diuresis in the past and has become hyponatremic in a previous exacerbation. Home medications include Xarelto 15 mg, isosorbide mononitrate 30 mg, metoprolol 100 mg, losartan potassium 100 mg. Echocardiogram on 10/24 showed LVEF 60% with moderate dilated RV with mild systolic dysfunction. There was septal flattening during diastole which was consistent with RV volume overload. LA was severely dilated as was RA. There was mild AR, ND, and MR and severe TR. Also moderate pulmonary HTN and a small pericardial effusion. CXR in ED showed enlarged cardiomediastinal silhouette which is unchanged from 10/23. There is no evidence of focal consolidation, significant pleural effusion or pneumothorax. CBC was grossly normal but showed 1+ poikilocytosis and 1+ anisocytosis. BNP was 601. Sodium levels are normal. Potassium is 3.8. Creatinine is elevated at 1.42 and estimated GFR is 35. Troponin was negative. Patient is receiving Lasix and her home medications of Xarelto, isosorbide mononitrate, metoprolol, and losartan. Past Med Surg Social Fam HX - Past Medical History Medical history: atrial fibrillation, glaucoma, hypertension, thyroid disease Additional medical history: AFIB, HTN, THYROID INSUFFICIENCY Psychiatric history: no psych history - Past Surgical History Surgical History: non-contributory Additional surgical history: carotid enderectomy - Social History Smoking Status: Never smoker Smokeless Tobacco Status: No Alcohol use: none Drug use: none - Family History Mother Hx Family Cardiac Disorders: Yes ([place]) Father Living Status: Cause of : [place] Hx Family Cardiac Disorders: Yes ([place]) Hx Family Musculoskeletal Disorders: Yes Hx Family Medical Disorders: Yes Medications and Allergies Latanoprost [Xalatan] 1 drop BOTH EYES HS 03/24/18 [History] Levothyroxine Sodium 50 mcg PO QAM 03/24/18 [History] Losartan Potassium [Cozaar] 100 mg PO DAILY 03/24/18 [History] Rivaroxaban [Xarelto] 15 mg PO DAILY 03/24/18 [History] Isosorbide MONOnitrate [Isosorbide Mononitrate ER] 30 mg PO DAILY 10/23/18 [History] Metoprolol Succinate [Toprol Xl] 100 mg PO DAILY 10/24/18 [History] Allergy/AdvReac Type Severity Reaction Status Date / Time amlodipine [From [facility]] Allergy Cough Verified 01/01/19 08:46 diltiazem Allergy Hives Verified 01/01/19 08:46 lisinopril Allergy Cough Verified 01/01/19 08:46 All Systems Review: The remainder of the systems were reviewed and are negative Physical Examination Vital Signs, Last 4 Hours Pulse Resp BP Pulse Ox 01/01/19 12:13 72 129/93 91 01/01/19 10:57 77 14 138/95 93 Other: GENERAL: EYES: HENT: NECK: CV: RESPIRATORY: GI: EXTREMITIES: Results 01/01/19 09:20 01/01/19 09:20 Lab Results 01/01/19 01/01/19 01/01/19 09:20 09:20 09:20 WBC 4.8 Hgb 13.7 Hct 42.1 Plt Count 175 Sodium 139 Potassium 3.8 Chloride 105 Carbon Dioxide 25 BUN 22 Creatinine 1.42 H Glucose 96 Calcium 9.0 Troponin I 0.03 B-Natriuretic Peptide 601 H Consult Discharge Plan - Plan Referrals: Luzma Escalante MD [Primary Care Provider] -
--- NOTE | 2019-01-01 16:16 | Electrocardiograph Report ---
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
[2019-01-01] MEDS: Furosemide 40 MG/4 ML VIAL IVP SCH (17:18)
[2019-01-01] MEDS: *HR* Rivaroxaban 15 MG TABLET PO SCH (19:49)
[2019-01-01] MEDS: Latanoprost 2.5 ML BOTTLE BOTH EYES SCH (19:49)
[2019-01-02 02:45] LABS: Hematocrit 40.7 % (35.3-44.9); Hemoglobin 13.3 g/dL (11.5-15.4); Mean Corpuscular HGB Conc 32.7 g/dL (31.6-35.5); Mean Corpuscular Volume 98.1 fL (83.0-100.0); Mean Platelet Volume 10.5 fL (9.4-12.4); Platelet Count 152 K/mcL (140-400); Red Blood Count 4.15 M/mcL (3.82-4.97); Red Cell Distribution Width 16.7 % (11.5-14.5); White Blood Count 4.1 K/mcL (4.3-11.1)
[2019-01-02 03:00] LABS: Calcium 8.5 mg/dL (8.6-10.3); Potassium 3.5 mEq/L (3.5-5.1)
--- NOTE | 2019-01-02 07:54 | Cardiology Consult Note ---
Date of Encounter: 01/02/19 Time of Encounter: 10:28 Assessment and Plan (1) CHF (congestive heart failure) Current Visit: Yes Status: Acute Patient is here for inpatient management of fluid overload secondary to CHF. -Continue on Lasix 40 mg IVP BID -Nephrology is following for CKD management -Creatinine has improved since admission to 1.32, but is still elevated -Continue to trend electrolytes and replete any low values -Sodium is within normal limits. -Potassium is at 3.5 and patient is receiving daily potassium chloride currently PO. Qualifiers: Heart failure type: diastolic Heart failure chronicity: acute on chronic Qualified Code(s): I50.33 - Acute on chronic diastolic (congestive) heart failure Discussion w patient/family: The assessment and plan as outlined above was discussed with the patient and/or family members who expressed understanding and agreement. All questions were answered. Thank you for involving us in the care of your patient. Please call with any questions. History of Present Illness Consult date: 01/01/19 Requesting physician: Sukhdev Castillo Consult reason: CHF exacerbation Chief complaint: CHF exacerbation History of present illness: Ms. Roa is a 88 year old female presenting today for inpatient management of volume overload secondary to CHF. Patient also has past medical history of HTN, hypothyroidism, pulmonary hypertension, CKD3. Home medications include Xarelto, KCl, Lasix, isosorbide mononitrate, metoprolol, losartan, and levothyroxine. Per daughter and patient, she began experiencing BLE edema in September, went to PCP where she was put on Lasix. After a week, she developed vomiting from hyponatremia and had a 5-day ICU stay for this. In October, she experienced BLE edema again and was put back on Lasix and sodium pills and she lost about 12 lbs. She began to retain fluid again and was put on Lasix and potassium at our office and has been followed with labs for three weeks but has not lost any further weight for one week. She has been admitted for IV Lasix with lab monitoring to remove further fluid. Patient feels well today but is frustrated that the fluid retention around her abdomen limits what she can wear and that she is needing to take breaks to catch breath when walking. Past Med Surg Social Fam HX - Past Medical History Medical history: atrial fibrillation, glaucoma, hypertension, thyroid disease Additional medical history: AFIB, HTN, THYROID INSUFFICIENCY Psychiatric history: no psych history - Past Surgical History Surgical History: non-contributory Additional surgical history: carotid enderectomy - Social History Smoking Status: Never smoker Smokeless Tobacco Status: No Alcohol use: none Drug use: none - Family History Mother Hx Family Cardiac Disorders: Yes ([place]) Father Living Status: Cause of : [place] Hx Family Cardiac Disorders: Yes ([place]) Hx Family Musculoskeletal Disorders: Yes Hx Family Medical Disorders: Yes Medications and Allergies Latanoprost [Xalatan] 1 drop BOTH EYES HS 03/24/18 [History] Levothyroxine Sodium 50 mcg PO QAM 03/24/18 [History] Losartan Potassium [Cozaar] 100 mg PO DAILY 03/24/18 [History] Rivaroxaban [Xarelto] 15 mg PO QPM 03/24/18 [History] Isosorbide MONOnitrate [Isosorbide Mononitrate ER] 30 mg PO DAILY 10/23/18 [History] Metoprolol Succinate [Toprol Xl] 100 mg PO DAILY 10/24/18 [History] Furosemide [Lasix] 40 mg PO 1200 01/01/19 [History] Potassium Chloride [K-Tab ER] 20 meq PO 1200 01/01/19 [History] Allergy/AdvReac Type Severity Reaction Status Date / Time diltiazem Allergy Hives Verified 01/01/19 18:12 amlodipine [From [facility]] AdvReac Cough Verified 01/01/19 18:12 lisinopril AdvReac Cough Verified 01/01/19 18:12 All Systems Review: The remainder of the systems were reviewed and are negative - Constitutional Constitutional: weight gain, no fatigue, no frequent falls, no headache(s) - EENT Eyes: no blurred vision, no loss of vision - Cardiovascular Cardiovascular: dyspnea on exertion, leg edema, other (fluid overload in abdomen), no chest pain at rest, no chest pain with exertion, no dyspnea at rest - Respiratory Respiratory: dyspnea, no cough - Gastrointestinal Gastrointestinal: no constipation, no diarrhea, no nausea - Genitourinary Genitourinary: no dysuria - Musculoskeletal Musculoskeletal: muscle weakness - Integumentary Integumentary: no unusual bruising - Neurological Neurological: no dizziness, no focal weakness, no loss of vision - Psychiatric Psychiatric: no anxiety, no depression - Hematological/Lymphatic Hematologic/Lymphatic: no easy bleeding, no easy bruising Physical Examination Vital Signs, Last 4 Hours Temp Pulse Resp BP Pulse Ox 01/02/19 07:26 96.1 F L 73 16 133/85 92 01/02/19 04:38 97.3 F L 73 14 131/86 91 Other: GENERAL: awake, conversant, very pleasant EYES: clear sclerae, anicteric, pupils equal and reactive to light HENT: atraumatic, normocephalic. Moist mucosa NECK: no carotid bruits present, normal carotid pulses, supple CV: regular rate and rhythm, no murmurs RESPIRATORY: clear to auscultation bilaterally, no wheezes, rhonchi, or rales GI: somewhat firm, nontender, distended with fluid. No fluid wave present. Normal bowel sounds. EXTREMITIES: 2+ pitting edema in bilateral lower extremities, acyanotic, peripheral pulses are 2+/4 bilaterally SKIN: warm, dry, no rashes Results 01/02/19 02:08 01/02/19 02:08 Lab Results 01/01/19 01/01/19 01/01/19 09:20 09:20 09:20 WBC 4.8 Hgb 13.7 Hct 42.1 Plt Count 175 Sodium 139 Potassium 3.8 Chloride 105 Carbon Dioxide 25 BUN 22 Creatinine 1.42 H Glucose 96 Calcium 9.0 Magnesium Troponin I 0.03 B-Natriuretic Peptide 601 H TSH 01/02/19 01/02/19 01/02/19 02:08 02:08 02:08 WBC 4.1 L Hgb 13.3 Hct 40.7 Plt Count 152 Sodium 137 Potassium 3.5 Chloride 106 Carbon Dioxide 23 BUN 22 Creatinine 1.32 H Glucose 83 Calcium 8.5 L Magnesium 2.0 Troponin I B-Natriuretic Peptide TSH 6.744 H Consult Discharge Plan - Plan Referrals: Luzma Escalante MD [Primary Care Provider] -
[2019-01-02] MEDS: Metoprolol XL (24 HR) Succ 50 MG TAB.ER.24H PO SCH (08:08)
[2019-01-02] MEDS: Isosorbide MONOnitrate (24 HR) 30 MG TAB.ER.24H PO SCH (08:08)
[2019-01-02] MEDS: Furosemide 40 MG/4 ML VIAL IVP SCH ×2 (08:08→17:43)
--- NOTE | 2019-01-02 10:30 | Internal Med Progress Note ---
Hospitalist Progress Note - Encounter Date of Encounter: 01/02/19 Time of Encounter: 10:34 - Subjective Interval History: Patient seen and examined this morning at bedside in no acute overnight events. Breathing improved. Feels her abdominal swelling went down. Denies any chest pain, nausea vomiting or diarrhea. Had ~-600 ccc so far. - Exam Vitals: Temp Pulse Resp BP Pulse Ox 96.1 F L 73 16 133/85 92 01/02/19 07:01/02/19 07:01/02/19 07:01/02/19 07:01/02/19 07:26 Exam: General: In no acute distress. Respiratory exam: CTAB. no accessory muscle use, rales, rhonchi, wheezes Cardiovascular exam: RRR, +S1, +S2. no murmur, gallop, rubs. GI/Abdominal exam: Non-tender, mildly distended, normal bowel sounds, soft, no peritoneal signs. Extremities exam: 2+ pedal edema, no calf tenderness Neurological exam: CN II-XII intact, AO X3, no focal deficits. Skin exam: No skin rash - Assessment and Plan (1) CHF (congestive heart failure) Current Visit: Yes Status: Acute (2) Hypertension Current Visit: No Status: Chronic (3) Atrial fibrillation Current Visit: No Status: Chronic (4) Hypothyroidism Current Visit: No Status: Chronic (5) ISSA (acute kidney injury) Current Visit: Yes Status: Acute - Summary of Assessment and Plan Summary of Assessment and Plan: Assessment Acute CHF exacerbation ISSA elevated TSH mod pulmonary HTN. Chronic afib HTN hypothyroid Plan - c/w lasix 40 BID. Fluid restriction Last echo in 11/09 - EF 60%. Severe TR with severely dilated lt atria, mod pul HTN. No significant congestion on CXR. Pul HTN may be more contributory to dyspnea. Cardiology following. Recomme ndations appreciated. Had PFT which was reviewed. Was given inhaler but later on was asked to stop it. Given improvement in FEV1 with bronchodilators, she may benefit from it, but she want to follow Cardiology recommendation. She was asked to follow up PCP to consider discussing bronchodilators and/or pulmonology consultation. - Has ISSA , likely related to CHF. Monitor Scr while being diuresed. Nephrology consulted. Appreciate recommendations. - c/w aspirin, statin, imdur, metoprolol and losartan - c/w xarelto and mtoprolol for afib - c/w levothyroxin. TSH mildly elevated. Will need outpatient follow up for dose adjustment. - Xarelto for DVT prophylaxis - Time Spent with Patient Total time spent is greater than 50% in coordination of care (as documented) at patient's floor/unit and/or counseling patient: Internal Medicine: Result - Labs CBC & Chem 7: 01/02/19 02:08 01/02/19 02:08 Labs: Short CBC 01/02/19 Range/Units 02:08 WBC 4.1 L (4.3-11.1) K/mcL Hgb 13.3 (11.5-15.4) g/dL Hct 40.7 (35.3-44.9) % Plt Count 152 (140-400) K/mcL BMP 01/02/19 02:08 Sodium 137 Potassium 3.5 Chloride 106 Carbon Dioxide 23 BUN 22 Creatinine 1.32 H Glucose 83 Calcium 8.5 L Consult Discharge Plan - Plan Referrals: Luzma Escalante MD [Primary Care Provider] - (1) CHF (congestive heart failure) Qualifiers: Qualified Code(s): I50.33 - Acute on chronic diastolic (congestive) heart failure (2) Hypertension Qualifiers: Qualified Code(s): I10 - Essential (primary) hypertension (3) Atrial fibrillation Qualifiers: Qualified Code(s): I48.2 - Chronic atrial fibrillation (4) Hypothyroidism Qualifiers: Qualified Code(s): E03.9 - Hypothyroidism, unspecified
[2019-01-02] MEDS: *HR* Rivaroxaban 15 MG TABLET PO SCH (17:44)
[2019-01-02] MEDS: Latanoprost 2.5 ML BOTTLE BOTH EYES SCH (21:22)
--- NOTE | 2019-01-02 21:45 | Nephrology Consult Note ---
Date of Encounter: 01/02/19 Time of Encounter: 09:50 Assessment and Plan (1) ISSA (acute kidney injury) Current Visit: Yes Status: Acute Mild ISSA on CKD stage III; non-oliguric; not uremic appearing; not fluid overloaded and in fact she was ambulatory while walking around her hospital room. She appears to quickly be improving. So at this point, I will politely sign-off. Please feel free to call or page me with any nephrology questions. (2) CHF (congestive heart failure) Current Visit: Yes Status: Acute Agree with diuretics. Her Scr is already improving despite diuresis. Qualifiers: Heart failure type: diastolic Heart failure chronicity: acute on chronic Qualified Code(s): I50.33 - Acute on chronic diastolic (congestive) heart failure (3) Hyponatremia Current Visit: No Status: Resolved Resolved (4) Pulmonary hypertension Current Visit: No Status: Acute Followed by Dr. Paris History of Present Illness - Reason for Consult Consult date: 01/02/19 Acute Kidney Injury, Chronic Kidney Disease Requesting physician: Sukhdev Castillo - Chief Complaint ISSA on CKD - History of Present Illness The patient is a very pleasant 88-year-old female with a past medical history of congestive heart failure, chronic kidney disease stage III, and et al who presented with worsening shortness of breath. Nephrology was consulted because of her elevated creatinine. She has previously been seen by [facility], but at that time had much more significant edema and even a hypervolemic hyponatremia. When the patient was seen and examined today (this is a delayed note documentation d/t extremely busy nephrology service), she was actually walking around her room, and did not affirm any nausea, vomiting, diarrhea, or NSAID use. She said that her breathing is already significantly better. Though she did not remember me, she actually happened have an appointment with me today in the office for hospital follow-up regarding the hyponatremia. I reported to her that her hyponatremia has completely resolved. The patient did not affirm taking [id number] NSAIDs. She reported that she is making plenty of urine after receiving the IV diuretics. She did not affirm having chest pain, and she said her shortness of breath is already improving. Past Med Surg Social Fam HX - Past Medical History Medical history: atrial fibrillation, glaucoma, hypertension, thyroid disease Additional medical history: AFIB, HTN, THYROID INSUFFICIENCY Psychiatric history: no psych history - Past Surgical History Surgical History: non-contributory Additional surgical history: carotid enderectomy - Social History Smoking Status: Never smoker Smokeless Tobacco Status: No Alcohol use: none Drug use: none - Family History Mother Hx Family Cardiac Disorders: Yes ([place]) Father Living Status: Cause of : [place] Hx Family Cardiac Disorders: Yes ([place]) Hx Family Musculoskeletal Disorders: Yes Hx Family Medical Disorders: Yes Medications and Allergies Latanoprost [Xalatan] 1 drop BOTH EYES HS 03/24/18 [History] Levothyroxine Sodium 50 mcg PO QAM 03/24/18 [History] Losartan Potassium [Cozaar] 100 mg PO DAILY 03/24/18 [History] Rivaroxaban [Xarelto] 15 mg PO QPM 03/24/18 [History] Isosorbide MONOnitrate [Isosorbide Mononitrate ER] 30 mg PO DAILY 10/23/18 [History] Metoprolol Succinate [Toprol Xl] 100 mg PO DAILY 10/24/18 [History] Furosemide [Lasix] 40 mg PO 1200 01/01/19 [History] Potassium Chloride [K-Tab ER] 20 meq PO 1200 01/01/19 [History] Allergy/AdvReac Type Severity Reaction Status Date / Time diltiazem Allergy Hives Verified 01/01/19 18:12 amlodipine [From Norvasc] AdvReac Cough Verified 01/01/19 18:12 lisinopril AdvReac Cough Verified 01/01/19 18:12 Review of Systems All Systems: reviewed and no additional remarkable complaints except as stated Exam - Vital Signs Vital signs: Initial Vital Signs Temp Pulse Resp BP Pulse Ox 97.4 F L 73 18 118/74 93 01/01/19 08:44 01/01/19 08:44 01/01/19 08:44 01/01/19 08:44 01/01/19 08:44 Vital Signs - Last 8 Hours Temp Pulse Resp BP Pulse Ox 01/02/19 19:53 97.4 F L 72 15 137/89 93 01/02/19 15:53 97.6 F 71 17 109/57 90 Intake and Output 01/02/19 01/02/19 01/02/19 07:59 15:59 23:59 Intake Total 240 / 360 120 / 360 Output Total 150 / 1050 200 / 1050 700 / 1050 Balance -150 / -690 40 / -690 -580 / -690 Intake: Oral 240 / 360 120 / 360 Output: Urine 150 / 1050 200 / 1050 700 / 1050 Other: Meal Lunch Dinner Percent of Meal Consumed 10% 50% Weight 77.4 kg Patient Weight 01/02/19 23:59 Weight 77.4 kg - General Appearance General appearance: well-developed, well-nourished, appears started age EENT: ATNC, PERRL, mucous membranes moist Neck: no JVD, supple Respiratory: no kyphosis, clear Cardiology: edema (trace to 1+ ankle edema bilaterally), normal S1, normal S2 Gastrointestinal: normoactive bowel sounds, no guarding Integumentary: warm and dry Neurologic: no focal deficit, no asterixis, alert and oriented x3 Musculoskeletal: no cyanosis, no clubbing Psychiatric: mood/affect appropriate, cooperative Results - Lab Results 01/02/19 02:08 01/02/19 02:08 Consult Discharge Plan - Plan Referrals: Luzma Escalante MD [Primary Care Provider] -
[2019-01-03 04:43] LABS: Calcium 8.8 mg/dL (8.6-10.3); Potassium 3.2 mEq/L (3.5-5.1)
[2019-01-03 04:47] VITALS: BP 115/58
[2019-01-03] MEDS: Furosemide 40 MG/4 ML VIAL IVP SCH (09:00)
[2019-01-03] MEDS: Isosorbide MONOnitrate (24 HR) 30 MG TAB.ER.24H PO SCH (09:00)
[2019-01-03] MEDS: Metoprolol XL (24 HR) Succ 50 MG TAB.ER.24H PO SCH (09:00)
--- NOTE | 2019-01-03 10:56 | Cardiology Progress Note ---
<Kayla Brooks - Last Filed: 01/03/19 10:53> Date of Encounter: 01/03/19 Time of Encounter: 10:53 Assessment and Plan (1) CHF (congestive heart failure) Current Visit: Yes Status: Acute Patient is here for inpatient management of fluid overload secondary to CHF. -Continue on Lasix 40 mg IVP BID -Nephrology has signed off for this hospital stay -Hospitalist is willing for patient to be discharged today. -Creatinine has improved since admission to 1.37, but is still elevated; she should see Nephrology in a week or so. -Continue to trend electrolytes and replete any low values -Sodium is within normal limits. -Potassium is at 3.2; this has been repleted per Hospitalist. -Vitals are stable -Patient I/O is -1750 for stay; some improvement present in abdominal distention and BLE edema. -Will discuss with patient whether further inpatient management is needed Qualifiers: Heart failure type: diastolic Heart failure chronicity: acute on chronic Qualified Code(s): I50.33 - Acute on chronic diastolic (congestive) heart failure Discussion w patient/family: The assessment and plan as outlined above was discussed with the patient and/or family members who expressed understanding and agreement. All questions were answered. Thank you for involving us in the care of your patient. Please call with any questions. Subjective Principal diagnosis: CHF exacerbation Interval history: Ciara Roa is an 88-year-old female presenting on 01/01 for inpatient [facility] of heart failure exacerbation with IV Lasix and labs. Today, she is feeling very well and was sitting in a chair at time of encounter, working on a puzzle with her daughter. She thinks her legs and abdomen are less swollen and she is urinating well. Objective Vital Signs, Last 4 Hours Temp Pulse Pulse Ox 01/03/19 07:05 97.6 F 85 93 Other: GENERAL: pleasant, awake, conversant EYES: anicteric, clear sclerae. Pupils equal and reactive to light bilaterally. HENT: atraumatic, normocephalic. Moist mucosa NECK: normal carotid pulses present CV: regular rate and rhythm. No murmurs heard RESPIRATORY: clear to auscultation bilaterally. No wheezes, rhonchi, or rales present GI: soft, nontender, mildly distended. Normal bowel sounds EXTREMITIES: 1-2+ pitting edema present, though improved since yesterday. Peripheral pulses are 2+/4 bilaterally. Results 01/02/19 02:08 01/03/19 03:58 Lab Results 01/03/19 03:58 Sodium 139 Potassium 3.2 L Chloride 102 Carbon Dioxide 27 BUN 21 Creatinine 1.37 H Glucose 84 Calcium 8.8 Consult Discharge Plan - Plan Instructions: Heart Failure (DC) Referrals: Nathan Cooper DO [Partnered Physician] - 01/25/19 8:00 am Luzma Escalante MD [Primary Care Provider] - 01/07/19 1:45 pm Adriano Paris DO [Partnered Physician] - (Appt has been requested. If Office does not contact you within 3 days, please call to schedule.) <Andree Mena - Last Filed: 01/03/19 14:17> Date of Encounter: 01/03/19 Assessment and Plan Discussion w patient/family: I examined this patient and my medical decision-making was reviewed with the Resident Physician. I agree with the documented findings, disposition and treatment plan as described. Ms. Roa is feeling better and requests to go home. She is not requiring supplemental oxygen, net negative 1750 (weighs may not be accurate). Still with fair amount of LE edema. Discussed options of continued IV diuresis vs discharge with outpatient follow up. Patient has outpatient Cardiology follow up Scheduled 01/10 at 1:15PM. Patient requests to go home. Will sign off. Please call with questions. Results 01/02/19 02:08 01/03/19 03:58 Lab Results 01/03/19 03:58 Sodium 139 Potassium 3.2 L Chloride 102 Carbon Dioxide 27 BUN 21 Creatinine 1.37 H Glucose 84 Calcium 8.8
--- NOTE | 2019-01-03 14:47 | Discharge Summary ---
- NOTES TO OUTPATIENT PROVIDER Notes to Outpatient Provider: Patient would need early follow-up with nephrology and cardiology. Patient will need a follow-up BMP in 1-2 weeks. Date of Encounter: 01/03/19 Time of Encounter: 14:44 - Discharge Diagnosis (1) CHF (congestive heart failure) Priority: Primary Status: Acute Qualifiers: Heart failure type: diastolic Heart failure chronicity: acute on chronic Qualified Code(s): I50.33 - Acute on chronic diastolic (congestive) heart failure (2) Hypertension Priority: Secondary Status: Chronic Qualifiers: Hypertension type: essential hypertension Qualified Code(s): I10 - Essential (primary) hypertension (3) Atrial fibrillation Priority: Secondary Status: Chronic Qualifiers: Atrial fibrillation type: chronic Qualified Code(s): I48.2 - Chronic atrial fibrillation (4) Hypothyroidism Priority: Secondary Status: Chronic Qualifiers: Hypothyroidism type: acquired Qualified Code(s): E03.9 - Hypothyroidism, unspecified (5) ISSA (acute kidney injury) Priority: Primary Status: Acute Hospital course: Ms. Roa is a 88 year old female past medical history of A. fib, hypertension, hypothyroidism, diastolic CHF, CKD stage III, severe TR, moderate to severe pulmonary hypertension came in from [employer]'s office with complain of abdominal distention and lower extremity edema. Previously she had hyponatremia from diuresis and needed hospitalization. Patient was admitted for IV diuresis. She was kept on IV Lasix and had about -1750 balance. Patient was feeling in terms of dyspnea and improving less swelling she wanted to go home. Significant component of dyspnea from pulmonary hypertension. Her renal function remains stable with IV diuresis. Patient was seen by nephrology who did not recommend any changes in her diuretic regimen on discharge. Patient was found to have elevated TSH however dose adjustment were not made currently given she is denying any symptoms. Patient wanted to go home and cardiology okay for discharge with early follow-up. Patient related follow BMP in 1-2 weeks. Discharge discussed with: patient, family, nurse, technical sales consultant - Time Spent with Patient Total time spent providing and/or coordinating discharge services: Time spent: Greater than 30 minutes - Discharge Medications Prescriptions: Continued Rivaroxaban [Xarelto] 15 mg PO QPM Losartan Potassium [Cozaar] 100 mg PO DAILY Levothyroxine Sodium 50 mcg PO QAM Latanoprost [Xalatan] 1 drop BOTH EYES HS Isosorbide MONOnitrate [Isosorbide Mononitrate ER] 30 mg PO DAILY Metoprolol Succinate [Toprol Xl] 100 mg PO DAILY Potassium Chloride [K-Tab ER] 20 meq PO 1200 Furosemide [Lasix] 40 mg PO 1200 Home Medications: Latanoprost [Xalatan] 1 drop BOTH EYES HS 03/24/18 [History] Levothyroxine Sodium 50 mcg PO QAM 03/24/18 [History] Losartan Potassium [Cozaar] 100 mg PO DAILY 03/24/18 [History] Rivaroxaban [Xarelto] 15 mg PO QPM 03/24/18 [History] Isosorbide MONOnitrate [Isosorbide Mononitrate ER] 30 mg PO DAILY 10/23/18 [History] Metoprolol Succinate [Toprol Xl] 100 mg PO DAILY 10/24/18 [History] Furosemide [Lasix] 40 mg PO 1200 01/01/19 [History] Potassium Chloride [K-Tab ER] 20 meq PO 1200 01/01/19 [History] Allergies/Adverse Reactions: Allergy/AdvReac Type Severity Reaction Status Date / Time diltiazem Allergy Hives Verified 01/01/19 18:12 amlodipine [From [facility]] AdvReac Cough Verified 01/01/19 18:12 lisinopril AdvReac Cough Verified 01/01/19 18:12 Date of admission: 01/01/19 11:03 Primary care physician: Luzma Escalante Consults: 01/01/19 11:33 Consult to Cardiology [CONS] Routine Comment: Consulting Provider: Cardiology [facility] Reason for Consult: Pt sent from Dr. Paris for admission for CHF exacerbation. Call Completed: No 01/01/19 12:20 Consult to [employer] D[employer] Co[employer] Operator [CONS] Routine Reason for SW Consult: HOME O2 THROUGH [place] PRN 2L 01/01/19 16:13 Consult to Nephrology [CONS] Routine Consulting Provider: [facility]/XANDER/ROBERT/JADE Reason for Consult: Pt with CHF and ISSA. Was scheduled to be seen outpatient tomorrow and admitted today. Call Completed: Yes Discharging clinician: Erendira Rodriguez - Constitutional Vitals: Temp Pulse Resp BP Pulse Ox 97.6 F 85 15 115/58 93 01/03/19 07:05 01/03/19 07:05 01/03/19 04:44 01/03/19 04:44 01/03/19 07:05 Exam: General: In no acute distress. Respiratory exam: CTAB. no accessory muscle use, rales, rhonchi, wheezes Cardiovascular exam: RRR, +S1, +S2. no murmur, gallop, rubs. GI/Abdominal exam: Non-tender, mildly distended, normal bowel sounds, soft, no peritoneal signs. Extremities exam: 2+ pedal edema, no calf tenderness Neurological exam: CN II-XII intact, AO X3, no focal deficits. Skin exam: No skin rash - Patient Status Disposition: Home, Self-Care Condition: Fair - Discharge Instructions Instructions: Heart Failure (DC) Follow Up With: Nathan Cooper DO [Partnered Physician] - 01/25/19 8:00 am Luzma Escalante MD [Primary Care Provider] - 01/07/19 1:45 pm Adriano Paris DO [Partnered Physician] - (Appt has been requested. If Office does not contact you within 3 days, please call to schedule.) - Diet and Activity Activity: increase activity as tolerated
== END 2019-01-03 16:05 | disposition home or self-care (01) ==
LOC: 2NENU 08:42 → EMEROOARM 08:42 → SUATTDRO 11:03 → 2NENU 11:41
PROVIDERS: ADMIT Internal Medicine; ATTEND Internal Medicine

== ENCOUNTER 2019-04-02 14:57 | Inpatient (IN) ==
[2019-04-02] MEDS ORDERED: Furosemide 40 MG/4 ML VIAL IVP ONE (15:33)
[2019-04-02 15:43] LABS: Basophils % 0.7 %; Eosinophils # 0.2 K/mcL (0.0-0.6); Eosinophils % 4.8 %; Hematocrit 46.2 % (35.3-44.9); Hemoglobin 15.6 g/dL (11.5-15.4); Lymphocytes # 1.5 K/mcL (0.6-4.6); Lymphocytes % 32.9 %; Mean Corpuscular HGB Conc 33.8 g/dL (31.6-35.5); Mean Corpuscular Hemoglobin 32.3 pg (28.0-33.3); Mean Corpuscular Volume 95.7 fL (83.0-100.0); Monocytes # 0.7 K/mcL (0.0-1.3); Monocytes % 15.6 %; Platelet Count 175 K/mcL (140-400); Red Blood Count 4.83 M/mcL (3.82-4.97); Red Cell Distribution Width 18.2 % (11.5-14.5); White Blood Count 4.4 K/mcL (4.3-11.1)
[2019-04-02 15:48] LABS: INR 3.7; Prothrombin Time 42.3 Seconds (9.4-12.1)
[2019-04-02 16:06] LABS: Albumin 3.5 g/dL (3.5-5.7); Albumin/Globulin Ratio 0.9 (1.1-2.2); Bilirubin,Direct 0.9 mg/dL (0.0-0.2); Bilirubin,Indirect 1.3 mg/dL (0.0-1.0); Bilirubin,Total 2.2 mg/dL (0.3-1.0); Calcium 9.5 mg/dL (8.6-10.3); Globulin 3.8 g/dL (2.4-3.5); Potassium 5.2 mEq/L (3.5-5.1); Total Protein 7.3 g/dL (6.4-8.9); Troponin I 0.03 ng/mL (< 0.04)
[2019-04-02] MEDS ORDERED: *HR* LORazepam 2 MG/ML VIAL IVP ONE (17:01)
[2019-04-02 18:12] LABS: Bilirubin,Urine Negative (Negative); Blood,Urine Small (Negative); Clarity,Urine Clear (Clear); Color,Urine Yellow (Yellow); Glucose,Urine (UA) Normal (Normal); Ketones,Urine Negative (Negative); Leukocyte Esterase,Urine Negative (Negative); Nitrite,Urine Negative (Negative); Protein,Urine Negative (Neg-Trace); Specific Gravity,Urine 1.011 (1.010-1.025); Urobilinogen,Urine Normal (Normal)
[2019-04-02 18:15] LABS: Bacteria,Urine None Seen per hpf (None-Few); Hyaline Casts,Urine None Seen per lpf (None-Few); Squamous Epithelial Cell,Urine Few per lpf (None-Few); WBC,Urine 0-3 per hpf (0-3)
[2019-04-02] MEDS ORDERED: Mag Hydrox/Al Hydrox/Simeth 30 ML UDC PO PRN (18:21)
[2019-04-02] MEDS ORDERED: Ondansetron ODT 4 MG TAB.RAPDIS SL PRN (18:21)
[2019-04-02] MEDS ORDERED: MOM Conc 10 ML UD.LIQ PO PRN (18:21)
[2019-04-02] MEDS ORDERED: Naloxone 0.4 MG/ML INJ IVP PRN (18:21)
[2019-04-02 18:41] LABS: ABG Base Excess -4 mEq/L (-2 to 3); ABG HCO3 20 mEq/L (21-27); ABG Oxygen Saturation 99 % (95-98); ABG PCO2 31 mmHg (35-45); ABG PH 7.41 pH Units (7.32-7.45); ABG PO2 122 mmHg (85-104); ABG TCO2 21 mEq/L (20-26)
[2019-04-02] MEDS: Furosemide 40 MG/4 ML VIAL IVP SCH (23:46)
[2019-04-02] MEDS: Latanoprost 2.5 ML BOTTLE BOTH EYES SCH (23:48)
[2019-04-03 05:15] LABS: Hematocrit 44.2 % (35.3-44.9); Hemoglobin 15.1 g/dL (11.5-15.4); Mean Corpuscular HGB Conc 34.2 g/dL (31.6-35.5); Mean Corpuscular Hemoglobin 32.5 pg (28.0-33.3); Mean Corpuscular Volume 95.3 fL (83.0-100.0); Platelet Count 163 K/mcL (140-400); Red Blood Count 4.64 M/mcL (3.82-4.97)
[2019-04-03 05:35] LABS: Calcium 9.4 mg/dL (8.6-10.3); Magnesium 2.5 mg/dL (1.6-2.6); Potassium 5.7 mEq/L (3.5-5.1)
[2019-04-03] MEDS ORDERED: Albumin 25% 25gram/100mL 25 GM/100 ML IV.SOLN IVC SCH (08:15)
[2019-04-03] MEDS ORDERED: Metoprolol XL (24 HR) Succ 50 MG TAB.ER.24H PO SCH (09:00)
[2019-04-03] MEDS: Furosemide 40 MG/4 ML VIAL IVP SCH (11:41)
[2019-04-03] MEDS: Isosorbide MONOnitrate (24 HR) 30 MG TAB.ER.24H PO SCH (11:41)
[2019-04-03] MEDS ORDERED: *HR* Dextrose 50 % in Water (Syg) 50 ML SYRINGE IVP PRN (12:08)
[2019-04-03] MEDS ORDERED: D5% in Water 1,000 ML IVC PRN (12:08)
[2019-04-03] MEDS ORDERED: Dextrose Gel 15 GM/37.5 ML TUBE PO PRN ×2 (12:08)
[2019-04-03] MEDS: Acetaminophen 325 MG TABLET PO PRN ×2 (13:45→23:40)
[2019-04-03] MEDS: Albumin 25% 25gram/100mL 25 GM/100 ML IV.SOLN IVPB SCH (16:40)
[2019-04-03] MEDS ORDERED: Furosemide 40 MG/4 ML VIAL IVP SCH (17:00)
[2019-04-03] MEDS ORDERED: *HR* Rivaroxaban 15 MG TABLET PO SCH (18:00)
[2019-04-03 18:09] LABS: Calcium 9.9 mg/dL (8.6-10.3); Potassium 5.8 mEq/L (3.5-5.1)
[2019-04-03] MEDS: Latanoprost 2.5 ML BOTTLE BOTH EYES SCH (20:43)
[2019-04-03 22:03] LABS: INR 2.3; Prothrombin Time 25.9 Seconds (9.4-12.1)
[2019-04-03 22:05] LABS: Activated Partial Thrombo Time 46.6 Seconds (26.0-36.0)
[2019-04-04 02:39] LABS: Calcium 9.9 mg/dL (8.6-10.3); Potassium 5.3 mEq/L (3.5-5.1)
[2019-04-04] MEDS ORDERED: Albumin 25% 25gram/100mL 25 GM/100 ML IV.SOLN IVPB SCH (06:00)
[2019-04-04] MEDS: Acetaminophen 325 MG TABLET PO PRN (06:03)
[2019-04-04] MEDS: Albumin 25% 25gram/100mL 25 GM/100 ML IV.SOLN IVPB SCH ×2 (07:13→13:42)
[2019-04-04 07:21] LABS: Hematocrit 43.8 % (35.3-44.9); Mean Corpuscular HGB Conc 34.2 g/dL (31.6-35.5); Mean Corpuscular Hemoglobin 32.2 pg (28.0-33.3); Mean Platelet Volume 10.6 fL (9.4-12.4); Platelet Count 145 K/mcL (140-400); Red Blood Count 4.66 M/mcL (3.82-4.97); Red Cell Distribution Width 18.2 % (11.5-14.5); White Blood Count 5.3 K/mcL (4.3-11.1)
[2019-04-04] MEDS: Isosorbide MONOnitrate (24 HR) 30 MG TAB.ER.24H PO SCH (08:57)
[2019-04-04] MEDS ORDERED: Furosemide 40 MG/4 ML VIAL IVP SCH ×2 (09:00→09:50)
[2019-04-04] MEDS ORDERED: Metoprolol XL (24 HR) Succ 50 MG TAB.ER.24H PO SCH (09:00)
[2019-04-04] MEDS: Lactulose Oral Soln 20 GM/30 ML UDC PO SCH ×2 (17:49→20:45)
[2019-04-04] MEDS: Latanoprost 2.5 ML BOTTLE BOTH EYES SCH (20:46)
[2019-04-05 04:39] LABS: Hematocrit 40.5 % (35.3-44.9); Hemoglobin 13.5 g/dL (11.5-15.4); Mean Corpuscular HGB Conc 33.3 g/dL (31.6-35.5); Mean Corpuscular Hemoglobin 32.8 pg (28.0-33.3); Mean Corpuscular Volume 98.3 fL (83.0-100.0); Mean Platelet Volume 10.5 fL (9.4-12.4); Platelet Count 120 K/mcL (140-400); Red Blood Count 4.12 M/mcL (3.82-4.97); Red Cell Distribution Width 18.2 % (11.5-14.5); White Blood Count 4.6 K/mcL (4.3-11.1)
[2019-04-05 04:43] LABS: INR 1.9; Prothrombin Time 22.1 Seconds (9.4-12.1)
[2019-04-05 05:08] LABS: Calcium 10.3 mg/dL (8.6-10.3); Potassium 4.6 mEq/L (3.5-5.1)
[2019-04-05] MEDS ORDERED: Albumin 25% 25gram/100mL 25 GM/100 ML IV.SOLN IVPB SCH (06:00)
[2019-04-05 07:07] LABS: Uric Acid 10.8 mg/dL (2.3-7.6)
[2019-04-05] MEDS: Lactulose Oral Soln 20 GM/30 ML UDC PO SCH (07:21)
[2019-04-05 14:01] LABS: Albumin 4.3 g/dL (3.5-5.7); Albumin/Globulin Ratio 1.7 (1.1-2.2); Bilirubin,Total 2.3 mg/dL (0.3-1.0); Calcium 10.1 mg/dL (8.6-10.3); Globulin 2.6 g/dL (2.4-3.5); Potassium 4.2 mEq/L (3.5-5.1); Total Protein 6.9 g/dL (6.4-8.9)
[2019-04-05 14:35] LABS: Hepatitis B Surface Antigen Nonreactive (Nonreactive)
[2019-04-05 15:04] LABS: Hepatitis C Virus Antibody Nonreactive (Nonreactive)
[2019-04-05 15:05] LABS: Hepatitis B Core IgM Nonreactive (Nonreactive)
[2019-04-05 15:08] LABS: Hepatitis A Antibody IgM Nonreactive (Nonreactive)
[2019-04-05] MEDS: Nystatin POWDER 30 GM BOTTLE TP SCH ×2 (16:52→19:21)
[2019-04-05] MEDS: Latanoprost 2.5 ML BOTTLE BOTH EYES SCH (19:20)
[2019-04-05 20:11] LABS: Protein/Creatinine Ratio,Urine 3.53 mg/mg (0.00-0.20); Sodium, Urine 67.5 mEq/L
[2019-04-06 01:26] LABS: Hematocrit 39.5 % (35.3-44.9); Mean Corpuscular HGB Conc 32.9 g/dL (31.6-35.5); Mean Corpuscular Hemoglobin 32.3 pg (28.0-33.3); Mean Corpuscular Volume 98.3 fL (83.0-100.0); Mean Platelet Volume 10.8 fL (9.4-12.4); Platelet Count 117 K/mcL (140-400); Red Blood Count 4.02 M/mcL (3.82-4.97); Red Cell Distribution Width 18.1 % (11.5-14.5); White Blood Count 5.2 K/mcL (4.3-11.1)
[2019-04-06 01:28] LABS: INR 1.7; Prothrombin Time 19.4 Seconds (9.4-12.1)
[2019-04-06 01:43] LABS: Potassium 3.9 mEq/L (3.5-5.1)
[2019-04-06] MEDS: Nystatin POWDER 30 GM BOTTLE TP SCH ×2 (08:44→21:32)
[2019-04-06] MEDS: Latanoprost 2.5 ML BOTTLE BOTH EYES SCH (21:30)
[2019-04-07 04:49] LABS: Hematocrit 39.5 % (35.3-44.9); Hemoglobin 13.3 g/dL (11.5-15.4); Mean Corpuscular HGB Conc 33.7 g/dL (31.6-35.5); Mean Corpuscular Hemoglobin 32.6 pg (28.0-33.3); Mean Corpuscular Volume 96.8 fL (83.0-100.0); Mean Platelet Volume 10.9 fL (9.4-12.4); Platelet Count 113 K/mcL (140-400); Red Blood Count 4.08 M/mcL (3.82-4.97); Red Cell Distribution Width 17.8 % (11.5-14.5); White Blood Count 5.1 K/mcL (4.3-11.1)
[2019-04-07 04:51] LABS: INR 1.5; Prothrombin Time 17.4 Seconds (9.4-12.1)
[2019-04-07 05:03] LABS: Calcium 9.6 mg/dL (8.6-10.3); Potassium 3.8 mEq/L (3.5-5.1)
[2019-04-07] MEDS: Nystatin POWDER 30 GM BOTTLE TP SCH ×2 (07:46→22:26)
[2019-04-07] MEDS: Metoprolol XL (24 HR) Succ 25 MG TAB.ER.24H PO SCH (11:51)
[2019-04-07] MEDS: Furosemide 40 MG TABLET PO SCH (11:51)
[2019-04-07] MEDS: Latanoprost 2.5 ML BOTTLE BOTH EYES SCH (22:26)
[2019-04-08 02:03] LABS: Calcium 9.3 mg/dL (8.6-10.3); Potassium 3.8 mEq/L (3.5-5.1)
[2019-04-08 09:49] LABS: Immunoglobulin A (CELIAC) 304 mg/dL (68-408); Immunoglobulin G Subclass 1 1170 mg/dL (240-1118); Immunoglobulin G Subclass 2 219 mg/dL (124-549); Immunoglobulin G Subclass 3 69 mg/dL (21-134); Immunoglobulin G Subclass 4 30 mg/dL (1-123)
[2019-04-08] MEDS: Metoprolol XL (24 HR) Succ 25 MG TAB.ER.24H PO SCH (11:18)
[2019-04-08] MEDS: Nystatin POWDER 30 GM BOTTLE TP SCH (11:19)
[2019-04-08] MEDS: Furosemide 40 MG TABLET PO SCH (11:19)
[2019-04-08 11:46] VITALS: BP 115/71
[2019-04-08 13:25] LABS: Serine Protease-3 Antibody 7 AU/mL (0-19)
[2019-04-09 09:57] LABS: Alpha 2 Globulin (PEP) 0.43 g/dL (0.48-1.05); Beta Globulin (PEP) 0.66 g/dL (0.48-1.10)
[2019-04-09 12:34] LABS: ANA IgG by ELISA DETECTED (None Detected); F-Actin (sm muscle) Ab IgG 44 Units (0-19); Saccharomyces cerevisiae IgA 50.9 Units (0.0-24.9); Tissue Transglutaminase IgA 1 U/mL (0-3)
[2019-04-09 12:39] LABS: IFE Reflexed NOT DONE
[2019-04-10 10:21] LABS: Smooth Muscle Ab Titer IgG <1:20 (<1:20)
[2019-04-10 20:05] LABS: ANA HEp-2 IgG IFA DETECTED (<1:80); Anti Nuclear Ab Pattern SPECKLED
[2019-04-11 21:26] LABS: A1A SZ Specimen WHOLE BLOOD; Alpha-1-Antitrypsin S Allele NEGATIVE; Alpha-1-Antitrypsin Z Allele NEGATIVE
[2019-04-12 08:35] LABS: Alpha-1-Antitrypsin 137 mg/dL (90-200)
== END 2019-04-08 16:53 | disposition home health service (06) | DRG 291 ==
LOC: 2NENU 14:57 → EMEROOARM 14:57 → SUATTDRO 17:30 → 2NENU 20:38
PROVIDERS: ADMIT Internal Medicine; ATTEND Internal Medicine